=== PATIENT | female | born 1965 | race Caucasian/White ===

== ENCOUNTER 2016-05-09 01:07 | Emergency (ER) | payer SELFPAY ==
[~2016-05-09] VITALS: Ht 154.9 cm; Wt 99.5 kg
[2016-05-09 01:42] VITALS: Ht 154.9 cm; Wt 99.5 kg
[2016-05-10] MEDS ORDERED: FURO40TA4 PO (11:11)
[2016-05-10] MEDS ORDERED: AMIO200T2 PO (11:11)
[2016-05-10] MEDS ORDERED: VALS160T20 PO (11:12)
[2016-05-10] MEDS ORDERED: IPRA4AER INHALATION (11:12)
== END 2016-05-09 03:56 | disposition left against medical advice (07) ==
LOC: E/R 01:07
DX: Z53.21 Procedure and treatment not carried out due to patient leaving prior to being seen by health care provider (principal)

== ENCOUNTER 2016-05-10 09:30 | Emergency (ER) | payer MEDICAID ==
[~2016-05-10] VITALS: Wt 80.0 kg
[2016-05-10] MEDS ORDERED: SOD CHLORIDE 0.9% 500 ML IV STA (10:16)
[2016-05-10] MEDS ORDERED: METHYLPREDNISOLONE 125 MG INJ IV STA (10:16)
[2016-05-10] MEDS ORDERED: IPRATROPIUM (NEB) 0.5 MG/2.5 ML AMP INH STA (10:16)
[2016-05-10] MEDS ORDERED: ALBUTEROL 0.5% (NEB) 2.5 MG/0.5 ML AMP INH STA (10:16)
--- NOTE | 2016-05-10 10:21 | ERD ---
ER Documentation Chief Complaint Date/Time DATE: 05/10/16 TIME: 10:19 Chief Complaint COUGH AND WHEEZING FOR THE PAST 2 DAYS. MILD DISTRESS. SPEAKS FULL SENTENCE HPI This is a 51-year-old female that presents to the emergency department complaining of a productive cough, rhinorrhea and difficulty breathing for the past 48 hours. The patient smokes tobacco and indicates she has been smoking cigarettes since she was 16 years of age and smokes roughly 1 pack every 3 days. She indicates that the cough is greenish sputum. She denies any night sweats or weight loss. She has had no recent travel or prolonged immobilization and denies any shortness of breath at rest or exertion. She denies any chest pain or pressure that radiates to the neck arm back or jaw. The patient indicates she has a history of atrial fibrillation but underwent ablation 1 year ago. The patient does indicate that she is taking "heart medication" but cannot remember the name. She also states that she takes a water pill as she has a history of congestive heart failure. The patient states she has had no fevers or shaking or chills. She indicates she had a similar episode roughly one year ago and did require antibiotics as she was admitted to the hospital for pneumonia. ROS All systems reviewed and are negative except as per history of present illness. Medications Home Meds Reported Medications Albuterol/Ipratropium* (Combivent Respimat*) 20-100 Mcg/Inh - 4 Gm Aer.w.adap, 1 -2 PUFF INHALATION QID, #1 INHALER 05/10/16 Valsartan* (Diovan*) 160 Mg Tablet, 160 MG PO DAILY, TAB 05/10/16 Furosemide* (Furosemide*) 40 Mg Tablet, 40 MG PO DAILY, TAB 05/10/16 Amiodarone Hcl* (Amiodarone Hcl*) 200 Mg Tablet, 200 MG PO DAILY, #30 TAB 05/10/16 Allergies Allergies: Coded Allergies: No Known Allergy (Unverified , 05/10/16) Physical Exam Vitals Vital Signs Date Time Temp Pulse Resp B/P Pulse Ox O2 Delivery O2 Flow Rate FiO2 05/10/16 12:25 146 18 144/121 100 Nasal Cannula 2.0 05/10/16 11:23 100 05/10/16 11:23 153 22 100 Nasal Cannula 2.0 05/10/16 10:57 Nasal Cannula 2 05/10/16 09:36 98.8 84 24 194/125 98 Physical Exam Constitutional:Well-developed. Well-nourished. HEENT:Normocephalic. Atraumatic.Pupils were equal round reactive to light. Moist mucous membranes.No tonsillar exudates. Neck: No nuchal rigidity. No lymphadenopathy. No posterior cervical spine tenderness or step-offs. Respiratory: Patient was speaking in full complete sentences not using accessory muscles of respiration. Wheezing on end auscultation bilaterally. Cardiovascular: Tachycardic with irregularly irregular rhythm and no murmurs. No rubs were appreciated.S1, S2 normal. Distal pulses are palpable 2+ bilaterally. GI: Abdomen was soft. Nontender. Non Distended. No pulsatile abdominal masses or bruits. No rebound. No guarding. Bowel sounds were present and normal. Muscle skeletal: Full range of motion of both the upper and lower extremities bilaterally.Normal muscle tone.No assymetrical calf tenderness or swelling. Skin: No petechia, no purpura. No lesions on the palms or the soles of the feet. No maculopapular rash. NEURO: Patient was alert, awake, orientated x3.No facial droop. Gait observed and normal with no ataxia.Speech had regular rate and rhythm. No focal neurological deficits. Result Diagram: 05/10/16 1051 Results 24 hrs Laboratory Tests Test 05/10/16 10:51 Basophils # 0.010^3/ul Basophils % 0.3% Blood Morphology Comment Eosinophils # 0.210^3/ul Eosinophils % 1.5% Hematocrit 38.7% Hemoglobin 13.1g/dl Lymphocytes # 2.710^3/ul Lymphocytes % 26.5% Mean Corpuscular Hemoglobin 28.2pg Mean Corpuscular Hemoglobin Concent 33.9g/dl Mean Corpuscular Volume 83.3fl Mean Platelet Volume 9.8fl Monocytes # 1.010^3/ul Monocytes % 9.6% Neutrophils # 6.410^3/ul Neutrophils % 62.1% Nucleated Red Blood Cells # 0.010^3/ul Nucleated Red Blood Cells % 0.0/100WBC Platelet Count 04734^3/UL Red Blood Count 4.6410^6/ul Red Cell Distribution Width 13.3% White Blood Count 10.410^3/ul Current Medications Medications (Trade) Dose Ordered Sig/Jemmia Route PRN Reason Start Time Stop Time Status Last Admin Dose Admin Sodium Chloride (NS) 500 ml @ 500 mls/hr Q1H STAT IV 05/10/16 10:16 05/10/16 11:15 DC 05/10/16 11:00 Albuterol (Proventil 0.5% (Neb)) 10 mg ONCE STAT INH 05/10/16 10:16 05/10/16 10:20 DC 05/10/16 11:23 Ipratropium [place] (Atrovent 0.02% (Neb)) 1 mg ONCE STAT INH 05/10/16 10:16 05/10/16 10:20 DC 05/10/16 11:22 Methylprednisolone Sodium Succinate (Solu-Medrol) 125 mg ONCE STAT IV 05/10/16 10:16 05/10/16 10:20 DC 05/10/16 11:00 Benzonatate (Tessalon) 100 mg ONCE ONCE PO 05/10/16 10:30 05/10/16 10:39 DC 05/10/16 10:30 Diltiazem HCl 20 mg 20 mg ONCE ONCE IV 05/10/16 11:00 05/10/16 11:01 DC 05/10/16 10:59 Diltiazem HCl (Cardizem-D5W 125 Mg/125 ml Drip) 125 ml @ 5 mls/hr ONCE STAT IV 05/10/16 10:35 05/11/16 11:34 05/10/16 11:00 Metoprolol Tartrate (Lopressor) 5 mg ONCE ONCE IV 05/10/16 11:30 05/10/16 11:31 DC 05/10/16 11:53 Oseltamivir Phosphate (Tamiflu) 75 mg ONCE ONCE PO 05/10/16 12:00 05/10/16 12:01 DC 05/10/16 11:53 Furosemide (Lasix) 40 mg ONCE ONCE IV 05/10/16 12:30 05/10/16 12:31 UNV Nitroglycerin (Nitroglycerin 2% Oint) 1 inch ONCE ONCE TD 05/10/16 12:30 05/10/16 12:31 UNV Procedures/MDM The patient presented to the emergency department with dyspnea. My differential diagnosis included but was not limited to upper airway obstruction, CHF, pulmonary embolism, cardiac ischemia, pneumonia, pneumothorax, anemia, drug overdose, pulmonary edema, COPD or asthma. The patient had IV access established by nursing staff received 125 mg of Solu- Medrol IV as well as continues nebulizer treatments of albuterol and Atrovent. The patient was placed on a inspector general and showed irregular regular rhythm. The patient was given Cardizem for her atrial fibrillation with RVR and placed on a Cardizem drip. 12 Lead EKG tracing ordered and reviewed by myself showed: Irregular regular rhythm at 179 bpm bpm and no arrhythmia. [place] interval not appreciated as P waves were not present due to A. fib with RVR QRS duration normal. No ST segment elevation No ST segment depression. No changes consistent with acute ischemia. I obtained a 1 view chest radiograph which showed no evidence of infiltrates pneumothorax or pleural effusion but there was pulmonary vascular congestion suggestive of congestive heart failure. Patient and given IV Lasix and nitroglycerin The patient was also influenza positive. She received Tamiflu. The patient will be admitted in serious condition for the hospitalist Dr. Bautista. The patient will go to the telemetry service with an anticipated stay of greater than 2 midnights. Critical Care: Time: 40 minutes Treatments/Evaluations: Close monitoring and treatment of unstable vital signs, cardiorespiratory, and neurologic status, while maintaining tight balance of fluid, respiratory, and cardiac interventions. Time does not include performing any of the above billable procedures. Departure Diagnosis: Primary Impression: Atrial fibrillation with RVR Additional Impression: Influenza Condition: Serious CHINACRISTIANA BALLESTEROS May 10, 2016 10:21
[2016-05-10] MEDS ORDERED: BENZONATATE 100 MG CAP PO ONE (10:30)
[2016-05-10] MEDS ORDERED: DILTIAZEM-D5W 125MG/125ML DRIP 125 ML IV STA (10:35)
[2016-05-10] MEDS ORDERED: DILTIAZEM 25 MG INJ IV ONE (11:00)
[2016-05-10] MEDS ORDERED: AMIO200T2 PO (11:11)
[2016-05-10] MEDS ORDERED: FURO40TA4 PO (11:11)
[2016-05-10] MEDS ORDERED: IPRA4AER INHALATION (11:12)
[2016-05-10] MEDS ORDERED: VALS160T20 PO (11:12)
[2016-05-10 11:15] LABS: BASOPHILS % 0.3 % (0.0-2.0); EOSINOPHILS # 0.2 10^3/ul (0.0-0.5); EOSINOPHILS % 1.5 % (0.0-7.0); HEMATOCRIT 38.7 % (37.0-47.0); HEMOGLOBIN 13.1 g/dl (12.0-16.0); LYMPHOCYTES # 2.7 10^3/ul (0.8-2.9); LYMPHOCYTES % 26.5 % (15.0-51.0); MEAN CORPUSCULAR HEMOGLOBIN 28.2 pg (29.0-33.0); MEAN CORPUSCULAR HGB CONC 33.9 g/dl (32.0-37.0); MEAN CORPUSCULAR VOLUME 83.3 fl (82.0-101.0); MEAN PLATELET VOLUME 9.8 fl (7.4-10.4); MONOCYTES % 9.6 % (0.0-11.0); NEUTROPHIL # 6.4 10^3/ul (1.6-7.5); NEUTROPHILS % 62.1 % (39.0-77.0); PLATELET COUNT 279 10^3/UL (140-440); RED BLOOD COUNT 4.64 10^6/ul (4.20-5.40); RED CELL DISTRIBUTION WIDTH 13.3 % (11.5-14.5); UNCORRECTED WBC 10.4 10^3/ul (4.8-10.8); WHITE BLOOD COUNT 10.4 10^3/ul (4.8-10.8)
[2016-05-10] MEDS ORDERED: METOPROLOL 5 MG INJ IV ONE ×2 (11:30→13:00)
[2016-05-10 11:32] LABS: CONDITION 1
--- NOTE | 2016-05-10 11:36 | RADRPT ---
PROCEDURE: CHEST 1VW CLINICAL INDICATION: Shortness of breath TECHNIQUE: Single frontal view of the chest was obtained COMPARISON: None. FINDINGS: The cardiac size is moderately enlarged. Aortic vascular calcifications are demonstrated. There is mild to moderate pulmonary vascular congestion. The lungs are otherwise clear. No consolidation, effusion, or pneumothorax. Mild degenerative changes of the visualized osseous structures are visualized. IMPRESSION: 1. Moderate cardiomegaly with mild to moderate pulmonary vascular congestion and interstitial edema. 2. Atherosclerosis. RPTAT:PP .Earl Bowen MD, MD Date Time Electronically viewed and signed by .Earl Bowen MD, MD on 05/10/2016 11:35 .V/
[2016-05-10] MEDS ORDERED: OSELTAMIVIR 75 MG CAP PO ONE (12:00)
[2016-05-10] MEDS ORDERED: FUROSEMIDE 40 MG INJ IV ONE (12:30)
[2016-05-10] MEDS ORDERED: NITROGLYCERIN 2% 1 GM OINT PKT TD ONE (12:30)
[2016-05-10 12:32] LABS: ALBUMIN 3.7 g/dl (3.3-4.9); POTASSIUM 3.5 mmol/L (3.5-5.1)
[2016-05-10 12:34] LABS: INR 1.06; PROTIME 13.8 Sec (12.2-14.2); PT RATIO 1.1
[2016-05-10 12:35] LABS: ALBUMIN/GLOBULIN RATIO 1.15; BILIRUBIN,INDIRECT 0.6 mg/dl (0-1.1); BILIRUBIN,TOTAL 0.6 mg/dl (0.2-1.3); CREATININE 0.76 mg/dl (0.44-1.00); PARTIAL THROMBOPLASTIN TIME 30.9 Sec (25.0-35.0); TOTAL PROTEIN 6.9 g/dl (6.1-8.1)
[2016-05-10 12:47] LABS: TROPONIN-I 0.014 ng/ml (0.00-0.12)
[2016-05-10] MEDS ORDERED: ONDANSETRON 4 MG INJ IV PRN (13:00)
[2016-05-10] MEDS ORDERED: LORAZEPAM 2 MG INJ IV ONE (13:00)
[2016-05-10] MEDS ORDERED: ACETAMINOPHEN 325 MG TAB PO PRN ×2 (13:00→16:30)
[2016-05-10] MEDS ORDERED: AMIODARONE 200 MG TAB PO SCH (16:30)
[2016-05-10] MEDS ORDERED: ONDANSETRON 4 MG TAB PO PRN (16:30)
[2016-05-10] MEDS ORDERED: LORAZEPAM 2 MG INJ IV PRN (16:30)
[2016-05-10] MEDS ORDERED: NACL 0.9% 3 ML SYG IV SCH (16:30)
[2016-05-10] MEDS ORDERED: DOCUSATE SODIUM 100 MG CAP PO PRN (16:30)
[2016-05-10] MEDS ORDERED: BISACODYL (EC) 5 MG TAB PO PRN (16:30)
[2016-05-10] MEDS ORDERED: NITROGLYCERIN (SL) 0.4 MG TAB SL PRN (16:30)
[2016-05-10] MEDS ORDERED: morphine 2 MG INJ IV PRN (16:30)
[2016-05-10] MEDS ORDERED: LEVALBUTEROL (HFA) 15 GM INHALER INH PRN (16:30)
[2016-05-10] MEDS ORDERED: DILTIAZEM-D5W 125MG/125ML DRIP 125 ML IV SCH (17:30)
[2016-05-10] MEDS ORDERED: POTASSIUM CHLORIDE (SR) 20 MEQ TAB PO STA (17:49)
[2016-05-10] MEDS ORDERED: DIGOXIN 500 MCG INJ IV ONE ×2 (18:00→21:00)
[2016-05-10] MEDS ORDERED: GUAIFENESIN/CODEINE 5ML CUP PO PRN (18:00)
[2016-05-10] MEDS ORDERED: CEFTRIAXONE 1 GM/50 ML (PMX) 50 ML IVPB SCH (18:00)
--- NOTE | 2016-05-10 18:34 | HP ---
DATE OF ADMISSION: 05/10/2016 PLATINUM SMITH: Dr. eHri Calloway. CHIEF COMPLAINT: Cough, congestion, and palpitation. HISTORY OF PRESENT ILLNESS: This is a 51-year-old female with past medical history of nicotine depe ndency, atrial fibrillation status post cardioversion and ablation x2, asthma who has been complaini ng of having cough, congestion, shortness of breath for the past 2 weeks. She was seen and evaluate d at the urgent care and was placed on Combivent and azithromycin about 2 weeks ago, which she state s that her cough and congestion improved while she was on medication, although status post the pack finished, the patient's symptoms return. She has been complaining of having palpitation and shortne ss of breath. Today, the patient presents to [facility] Emergency Room where she was found to have atrial fibrillation with ventricular rate of 150s. Chest x-ray demonstrated moderate cardi omegaly with mild to moderate pulmonary vascular congestion, interstitial edema, atherosclerosis. A lso, the patient was found to have influenza A negative, influenza B positive. She was treated with Ativan, nitroglycerin, Lasix, Zofran, metoprolol, Tamiflu, Cardizem drip, Solu-Medrol, Atrovent, Te ssalon Perles, and 500 mL of normal saline. The patient, at this time, denies having any chest pain , shortness of breath. Continues to complain of having cough and congestion. No headache, dizzines s, lightheadedness. No change in visual acuity, diplopia, photophobia. No abdominal pain, no nause a, vomiting, diarrhea. No dysuria, hematuria, urgency, incontinence. No recent travel history. No sick contact. According to the patient, the patient was diagnosed with atrial fibrillation and was placed on Xarelto also, although patient after watching the commercial on TV stopped her Xarelto on her own and has not been on any anticoagulation medication. As stated above, patient has had 2 car diac ablations for her history of atrial fibrillation, although the atrial fibrillation has spontane ously recurred about a month later. At this time, patient denies any other discomfort. PAST MEDICAL AND SURGICAL HISTORY: As above per HPI. MEDICATIONS: 1. Combivent. 2. Amiodarone. 3. Lasix. 4. Diovan. 5. Aldactone. ALLERGIES: NO KNOWN DRUG ALLERGIES. FAMILY HISTORY: Positive for diabetes mellitus. Mother of [place] at the age of 65. SOCIAL HISTORY: Positive for smoking cigarettes, about 8 to 10 cigarettes per day. No alcohol, no illicit drugs. REVIEW OF SYSTEMS: As above per HPI, otherwise 12 review of systems has been found to be negative. PHYSICAL EXAMINATION: VITAL SIGNS: Temperature 98.8, pulse 129, respiration 18, blood pressure 142/84, oxygen 99% on room air. GENERAL APPEARANCE: The patient is lying in bed comfortably without any distress. She is awake, al ert, oriented. She is able to answer my questions properly. EYES AND ENT: Conjunctivae and lids are normal. Pupils are normal. Extraocular normal. Hearing g rossly normal. Lips, teeth, gums are normal. Oral mucosa is mildly dry. NECK: Supple. Trachea is midline. No lymphadenopathy. RESPIRATORY: Effort is normal. Clear to auscultation bilaterally. PSYCHIATRIC: Normal S1, S2. Atrial fibrillation. Irregular rate and rhythm. GASTROINTESTINAL: Abdomen is soft, nontender, not distended. Bowel sounds present. No guarding, n o rebound. GENITOURINARY: Deferred. MUSCULOSKELETAL: Upper and lower extremities within normal limits. Full range of motion. Strength 5/5 in both upper and lower extremities. NEUROLOGIC: Cranial nerves II through XII are grossly intact. PSYCHIATRIC: Normal judgment and insight. Alert and oriented x3. Mood and affect is normal. LABORATORY WORK AND IMAGING: WBC 10.4, hemoglobin 13.1, hematocrit 38.7, platelet 279. Sodium 145, potassium 3.5, chloride 102, bicarbonate 29, BUN 16, creatinine 0.76, glucose 116. BNP 6160. The rest of LFTs are within normal limits. Troponin negative. EKG showed irregular rhythm at 179 beats per minute. No arrhythmia. The patient has a P-wave due to atrial fibrillation and RVR. QRS dura tion normal, no ST segment elevation or depression, no sign of ischemia. ASSESSMENT AND PLAN: 1. Atrial fibrillation with rapid ventricular response. The patient has been placed on Cardizem dr ip. We will place the patient on Lovenox. We will follow up cardiology recommendation. We will ob tain 2D echocardiogram. Follow up cardiology recommendation for restarting the patient on anticoagu lation. The patient also has been started on metoprolol. 2. Influenza B positive. The patient has been started on Tamiflu. 3. Congestive heart failure. Continue Diovan, Lasix, and Aldactone. Obtain 2D echocardiogram. 4. Nicotine dependency. Education was provided. Smoking cessation has been recommended. 5. Noncompliance with medical treatment. The patient has been educated regarding the importance of anticoagulant medication. 6. For deep venous thrombosis prophylaxis, on Lovenox. 7. For gastrointestinal prophylaxis, on proton pump inhibitor. We will continue to monitor patient closely. Further recommendations, management, and treatment as per clinical course. Total amount of time was spent for evaluation of patient and admission workup 40 minutes. Dictated By: JESSY MEEKS MD PN/NTS Conf#: [id number] DID#: [id number]
--- NOTE | 2016-05-10 18:37 | CONS ---
DATE OF ADMISSION: 05/10/2016 DATE OF CONSULTATION: 05/10/2016 TYPE OF CONSULTATION: Cardiology. REFERRING PHYSICIAN: Dr. Meeks REASON FOR CONSULTATION: Atrial fibrillation, congestive heart failure. CHIEF COMPLAINT: Shortness of breath, palpitations, rapid heart rate. HISTORY OF PRESENT ILLNESS: Thank you for this referral. History obtained from the patient who is a poor historian, discussion with her girlfriend, discussion with Dr. Meeks and discussion with ER physician and staff. This is a 51-year-old female with history of cardiac disorder, probably atr ial fibrillation, chronic, and possibly cardiomyopathy but apparently does not follow up regularly. The patient came to emergency room because over the past ____ she has been having increasing shortn ess of breath, palpitations, rapid heart rate. She was noted to be atrial fibrillation, rapid ventr icular response, heart rate around 180s. Denies any chest pain or pressure to me. Also has had cou gh, wheezing as well. The patient said that she is compliant with her medication, but according to girlfriend who is at the bedside, states she is not taking her medications regularly because she is afraid of getting harmed by them. She apparently does not follow regularly with her physician george haley PAST MEDICAL HISTORY: History of cardiac disorder, atrial fibrillation, probably in congestive hear t failure although detail is not clear. MEDICATIONS AT HOME: She has only 2 medications at the bedside, Lasix and Aldactone, apparently aristides es them. On the list of home medication per medical reconciliation sheet, also valsartan and amioda amaury have been recorded, but I'm not sure if she is taking any of them or not. FAMILY HISTORY: The patient's mother with coronary artery disease. ALLERGIES: NO KNOWN DRUG ALLERGIES. SOCIAL HISTORY: The patient actively smokes. Occasionally drinks but denies heavy drug abuse. REVIEW OF SYSTEMS: As above mentioned. PHYSICAL EXAMINATION: VITAL SIGNS: Heart rate at admission was 180s, 150s. Currently 129. Temperature 98.8, blood press ure 142/85, respiratory rate of 18, saturating 99%. HEENT: Normocephalic, atraumatic. CARDIOVASCULAR: Irregularly irregular, tachycardic. PULMONARY: Diffuse wheezes. GASTROINTESTINAL: Soft, nontender. EXTREMITIES: Trivial edema. NEUROLOGIC: Awake and alert. PSYCHIATRIC: Appeared to be calm now. LABORATORY: Sodium 145, potassium 3.5, BUN of 16, creatinine 0.73, glucose of 116. ProBNP 6160. A lbumin 3.7. WBC of 10.4, ____ of 13.1, platelets of 271. Chest x-ray showed cardiomegaly, congestive heart failure upon personal review. EKG: Atrial fibrillation, rapid ventricular response. ASSESSMENT AND PLAN: 1. Congestive heart failure exacerbation, ____ acute on chronic secondary to systolic heart failure as well as diastolic dysfunction and noncompliance. 2. Atrial fibrillation, rapid ventricular response. 3. Probably chronic obstructive pulmonary disease. 4. History of poor compliance with medication. 5. Hypertension. RECOMMENDATIONS: Diovan will be continued. I will start the patient on IV Lasix for now. Echocard iogram has been ordered to be done. Will rule out myocardial infarction. Change the Lovenox to the rapeutic dose for now. Cardizem drip has been initiated. I will also give IV digoxin to control th e heart rate better. Continue to follow along with you. Dictated By: TUTU DE OLIVEIRA MD AV/GALLO Conf#: [id number] DID#: [id number] CC: JESSY MEEKS MD;*End*
[2016-05-10] MEDS ORDERED: FUROSEMIDE 20 MG INJ IV SCH (19:00)
[2016-05-10 19:20] VITALS: BP 115/62; PULSE 145; RESP 18
--- NOTE | 2016-05-10 19:37 | DS ---
Date/Time of Note Date/Time of Note DATE: 05/10/16 TIME: 19:30 Discharge Summary Admission/Discharge Info Admit Date/Time 05/10/16 Discharge Date/Time 05/10/16 Final Diagnosis Patient signed out AMA Admitting diagnoses: 1. Atrial fibrillation with rapid ventricular response. Status post Cardizem drip and Lovenox. Cardiology was consulted 2. Influenza B positive. Was started on Tamiflu. 3. Congestive heart failure. 4. Nicotine dependency. Education was provided. Smoking cessation has been recommended. 5. Noncompliance with medical treatment. The patient has been educated regarding the importance of anticoagulant medication. Hospital Course Hospital course Note patient: Patient signed out AMA from emergency room this is a 51-year-old female with past medical history of nicotine dependency, atrial fibrillation status post ablation x2, asthma who has been complaining of having cough, congestion, shortness of breath for the past 2 weeks. She was seen and evaluated at the urgent care and was placed on Combivent and azithromycin about 2 weeks ago, which she states that her cough and congestion improved while she was on medication, although status post the pack finished, the patient's symptoms return. She has been complaining of having palpitation and shortness of breath. Today, the patient presents to [facility] Emergency Room where she was found to have atrial fibrillation with ventricular rate of 150s. Chest x-ray demonstrated moderate cardiomegaly with mild to moderate pulmonary vascular congestion, interstitial edema, atherosclerosis. Also, the patient was found to have influenza A negative, influenza B positive. She was treated with Ativan, nitroglycerin, Lasix, Zofran, metoprolol, Tamiflu , Cardizem drip, Solu-Medrol, Atrovent, Tessalon Perles, and 500 mL of normal saline. According to the patient, the patient was diagnosed with atrial fibrillation and was placed on Xarelto also, although patient after watching the commercial on TV stopped her Xarelto on her own and has not been on any anticoagulation medication. As stated above, patient has had 2 cardiac ablations for her history of atrial fibrillation, although the atrial fibrillation has spontaneously recurred about a month later. Cardiology was consulted and echocardiogram was ordered. Patient was seen and evaluated by the serials librarian during the course of the emergency room although while in the ER patient decided to sign out AMA for personal reason. The discussion regarding her condition and diagnosis was discussed with the patient by the ER nurse and patient has requested a ride to pick her up from the emergency room. Patient understands that leaving the hospital/ER AGAINST MEDICAL ADVICE would place her in the risk of worsening of her cough, cardiac event, shortness of breath, myocardial infarction, CVA and possible Home Meds Reported Medications Albuterol/Ipratropium* (Combivent Respimat*) 20-100 Mcg/Inh - 4 Gm Aer.w.adap, 1 -2 PUFF INHALATION QID, #1 INHALER 05/10/16 Valsartan* (Diovan*) 160 Mg Tablet, 160 MG PO DAILY, TAB 05/10/16 Furosemide* (Furosemide*) 40 Mg Tablet, 40 MG PO DAILY, TAB 05/10/16 Amiodarone Hcl* (Amiodarone Hcl*) 200 Mg Tablet, 200 MG PO DAILY, #30 TAB 05/10/16 Pending Labs Laboratory Tests Test 05/10/16 10:51 05/10/16 12:00 05/10/16 18:15 Basophils # 0.010^3/ul (0.0-0.1) Basophils % 0.3% (0.0-2.0) Blood Morphology Comment Eosinophils # 0.210^3/ul (0.0-0.5) Eosinophils % 1.5% (0.0-7.0) Hematocrit 38.7% (37.0-47.0) Hemoglobin 13.1g/dl (12.0-16.0) Lymphocytes # 2.710^3/ul (0.8-2.9) Lymphocytes % 26.5% (15.0-51.0) Mean Corpuscular Hemoglobin 28.2pg (29.0-33.0) Mean Corpuscular Hemoglobin Concent 33.9g/dl (32.0-37.0) Mean Corpuscular Volume 83.3fl (82.0-101.0) Mean Platelet Volume 9.8fl (7.4-10.4) Monocytes # 1.010^3/ul (0.3-0.9) Monocytes % 9.6% (0.0-11.0) Neutrophils # 6.410^3/ul (1.6-7.5) Neutrophils % 62.1% (39.0-77.0) Nucleated Red Blood Cells # 0.010^3/ul (0.0-0.0) Nucleated Red Blood Cells % 0.0/100WBC (0.0-0.0) Platelet Count 34260^3/UL (140-440) Red Blood Count 4.6410^6/ul (4.20-5.40) Red Cell Distribution Width 13.3% (11.5-14.5) White Blood Count 10.410^3/ul (4.8-10.8) Activated Partial Thromboplast Time 30.9Sec (25.0-35.0) Alanine Aminotransferase (ALT/SGPT) 41IU/L (13-69) Albumin 3.7g/dl (3.3-4.9) Albumin/Globulin Ratio 1.15 Alkaline Phosphatase 107IU/L (42-121) Anion Gap 18 (8-16) Aspartate Amino Transf (AST/SGOT) 24IU/L (15-46) B-Type Natriuretic Peptide 6160PG/ML (0-125) Blood Urea Nitrogen 16mg/dl (7-20) Calcium Level 9.0mg/dl (8.4-10.2) Carbon Dioxide Level 29mmol/L (21-31) Chloride Level 102mmol/L (97-110) Creatinine 0.76mg/dl (0.44-1.00) Direct Bilirubin 0.00mg/dl (0.00-0.20) Globulin 3.20g/dl (1.3-3.2) Glucose Level 116mg/dl (70-220) INR International Normalized Ratio 1.06 Indirect Bilirubin 0.6mg/dl (0-1.1) Potassium Level 3.5mmol/L (3.5-5.1) Prothrombin Time 13.8Sec (12.2-14.2) Prothrombin Time Ratio 1.1 Sodium Level 145mmol/L (135-144) Total Bilirubin 0.6mg/dl (0.2-1.3) Total Protein 6.9g/dl (6.1-8.1) Troponin I 0.014ng/ml (0.00-0.12) Urine Test NEGATIVE (NEGATIVE) Microbiology Date/Time Source Procedure Growth Status 05/10/16 10:51 Nasopharyngeal Influenza Types A,B Direct EIA - Final Complete NAGHDECHI,JESSY MD May 10, 2016 19:37
[2016-05-10] MEDS ORDERED: OSELTAMIVIR 75 MG CAP PO SCH (21:00)
[2016-05-10] MEDS ORDERED: METOPROLOL 25 MG TAB PO SCH (21:00)
[2016-05-11] MEDS ORDERED: VALSARTAN 160 MG TAB PO SCH (09:00)
[2016-05-11] MEDS ORDERED: ASPIRIN 81 MG TAB PO SCH (09:00)
[2016-05-11] MEDS ORDERED: FUROSEMIDE 40 MG TAB PO SCH (09:00)
[2016-05-11] MEDS ORDERED: ENOXAPARIN 40 MG/0.4 ML SYG SC SCH (09:00)
[2016-05-11] MEDS ORDERED: FUROSEMIDE 40 MG INJ IV SCH (09:00)
[2016-05-11] MEDS ORDERED: SPIRONOLACTONE 25 MG TAB PO SCH (09:00)
== END 2016-05-10 19:20 | disposition left against medical advice (07) ==
LOC: E/R 09:30
DX: I48.91 Unspecified atrial fibrillation (principal); J10.1 Influenza due to other identified influenza virus with other respiratory manifestations; F17.210 Nicotine dependence, cigarettes, uncomplicated; I10 Essential (primary) hypertension
CPT/HCPCS: 36415; 71010; 80053; 83880; 84484; 84703; 85025; 85610; 85730; 87400; 93005; 94644; 96365; 96366; 96375; J1160; J1940; J2060; J2930; J7040; Z7502; Z7610; J0696

== ENCOUNTER 2016-07-08 05:21 | Inpatient (IN) | payer MEDICAID ==
[~2016-07-08] VITALS: Ht 157.5 cm; Wt 90.5 kg
[~2016-07-08 05:21] MED LIST: AMIO200T2 PO; FURO40TA4 PO; IPRA4AER INHALATION; VALS160T20 PO
[2016-07-08] MEDS ORDERED: SOD CHLORIDE 0.9% 1,000 ML IV STA (05:42)
[2016-07-08] MEDS ORDERED: DILTIAZEM 25 MG INJ IV ONE (06:00)
[2016-07-08 06:03] LABS: ADD SCAN DIFF NO
[2016-07-08] MEDS ORDERED: DILTIAZEM-D5W 125MG/125ML DRIP 125 ML IV STA (06:15)
[2016-07-08] MEDS ORDERED: ONDANSETRON 4 MG INJ IV STA (06:15)
[2016-07-08] MEDS ORDERED: DILTIAZEM 25 MG INJ IV STA (06:15)
[2016-07-08 06:18] LABS: INR 1.13; PROTIME 14.5 Sec (12.2-14.2); PT RATIO 1.1
[2016-07-08] MEDS ORDERED: IOHEXOL 300MG/ML 150 ML BTL ONE (06:18)
[2016-07-08] MEDS ORDERED: SOD CHLORIDE 0.9% 100 ML ONE (06:18)
[2016-07-08 06:19] LABS: PARTIAL THROMBOPLASTIN TIME 28.9 Sec (25.0-35.0)
[2016-07-08 06:20] LABS: BASOPHIL # 0.1 10^3/ul (0.0-0.1); BASOPHILS % 0.8 % (0.0-2.0); EOSINOPHILS # 0.1 10^3/ul (0.0-0.5); EOSINOPHILS % 1.1 % (0.0-7.0); HEMATOCRIT 46.5 % (37.0-47.0); HEMOGLOBIN 14.5 g/dl (12.0-16.0); LYMPHOCYTES # 2.8 10^3/ul (0.8-2.9); LYMPHOCYTES % 28.1 % (15.0-51.0); MEAN CORPUSCULAR HEMOGLOBIN 26.8 pg (29.0-33.0); MEAN CORPUSCULAR HGB CONC 31.2 g/dl (32.0-37.0); MEAN PLATELET VOLUME 10.4 fl (7.4-10.4); MONOCYTE # 0.8 10^3/ul (0.3-0.9); MONOCYTES % 7.8 % (0.0-11.0); NEUTROPHIL # 6.2 10^3/ul (1.6-7.5); NEUTROPHILS % 61.9 % (39.0-77.0); PLATELET COUNT 356 10^3/UL (140-415); RED BLOOD COUNT 5.41 10^6/ul (4.20-5.40); RED CELL DISTRIBUTION WIDTH 13.9 % (11.5-14.5); WHITE BLOOD COUNT 10.1 10^3/ul (4.8-10.8)
[2016-07-08 06:21] LABS: ANION GAP 13 (8-16); BLOOD UREA NITROGEN 20 mg/dl (7-20); CALCIUM 9.2 mg/dl (8.4-10.2); CARBON DIOXIDE 29 mmol/L (21-31); CHLORIDE 103 mmol/L (97-110); CREATININE 1.02 mg/dl (0.44-1.00); GLUCOSE 108 mg/dl (70-220); MAGNESIUM 1.8 mg/dl (1.7-2.5); POTASSIUM 3.6 mmol/L (3.5-5.1); SODIUM 141 mmol/L (135-144)
[2016-07-08 06:33] LABS: B-TYPE NATRIURETIC PEPTIDE 6890 PG/ML (0-125)
[2016-07-08 06:35] LABS: TROPONIN-I < 0.012 ng/ml (0.00-0.12)
--- NOTE | 2016-07-08 06:43 | RADRPT ---
PROCEDURE: CHEST - 1 VIEW CLINICAL INDICATION: 51-year-old female with chest pain. TECHNIQUE: A single frontal AP upright portable view of the chest was performed. The images were reviewed on a PACS workstation. COMPARISON: Chest x-ray May 10, 2016. FINDINGS: The cardiomediastinal silhouette is moderately enlarged but without significant interval change. Th e thoracic aortic arch is calcified. There is nbin-[id number] pulmonary vascular congestion. Ther e is no evidence for focal consolidation. There is no evidence for pneumothorax. The osseous structu res are intact. IMPRESSION: 1. Cardiomegaly. 2. Calcified thoracic aortic arch. 3. Pulmonary vascular congestion. .Alfa Reaves MD, Date Time Electronically viewed and signed by .Alfa Reaves MD, on 07/08/2016 06:43 .M/
--- NOTE | 2016-07-08 07:42 | RADRPT ---
PROCEDURE: CT angiogram of the chest with contrast. CLINICAL INDICATION: Shortness of breath. Rule out pulmonary embolism. TECHNIQUE: CT scan of the chest with contrast was performed on a multidetector high-resolution CT scan. The patient was scanned following the uncomplicated intravenous administration of 100 ml Omni paque-300. Coronal and sagittal reformatted images were obtained from the axial source images. Stand jarett CT angiogram of the chest with contrast protocols were performed. The total exam CTDI equals 49.29 mGy and the total exam DLP equals 848.70 mGy-cm. One or more of the following dose reduction techniques were used: - Automated exposure control. - Adjustment of the mA and/or kV according to patient size. Use of iterative reconstruction technique. COMPARISON: Chest 07/08/2016 FINDINGS: The pulmonary outflow tract, right and left main pulmonary arteries, right and left interlobar are a nd primary intersegmental pulmonary arteries are well enhanced without filling defects. Specificall y there is no evidence of central pulmonary emboli. There is atherosclerotic vascular disease of th e aorta there is fusiform aneurysmal dilatation of the ascending aorta with a maximal diameter of ap proximately 4.4 cm. No evidence of aortic dissection though the aorta is not optimally opacified. No evidence of periaortic fluid collections. There are numerous right upper and lower lobe noncalcified pulmonary nodules some of which are pleur al-based measuring between 3 mm and 9 mm consistent with inflammatory versus neoplastic etiologies. There is no evidence of left lung pulmonary nodules. There is mild bilateral chronic interstitial lung disease worse at the lung bases. The addition there is singh lobular emphysema. Mild dependent atelectasis. There is lateral eventration of the left hemidiaphragm. There is no evidence of pleural effusions o r pneumothorax. The heart is mildly enlarged without evidence of pericardial effusion. There is mi ld to moderate paratracheal , right hilar and prevascular space lymphadenopathy. No evidence of left hilar or axillary lymphadenopathy. In the posterior subcapsular mid right lobe of the liver is a 4.5 x 2.5 cm low density lesion. In t he lateral mid right lobe of the liver is a ill-defined 1.2 cm low density lesion. Uncertain as dav ology of the low density lesions however hepatic metastasis should be excluded. In addition, the ad renal glands demonstrate nodular masses larger on the left measuring approximately 3.5 cm. Again, m etastasis should be considered. An MRI of the abdomen with without contrast is suggested for furthe r evaluation if clinically indicated. There is a pedunculated 2 cm low density mass involving the p osterior superior left kidney with Hounsfield units not consistent with a simple cyst. Follow-up is suggested as well. Remainder of the images of the upper abdomen are unremarkable. There is degenerative changes of the lower cervical and thoracic spine. There are no acute osseous findings. There are no osteoblastic/osteolytic lesions. IMPRESSION: 1. No evidence of central pulmonary emboli. 2. Aneurysmal dilatation of the ascending aorta with a maximal diameter of 4.4 cm. No evidence of aortic dissection. 3. Multiple noncalcified right upper and lower lobe pulmonary nodules measuring between 3 and 9 mm. Rule out metastatic disease. 4. Mild to moderate paratracheal, right hilar and aortopulmonary window lymphadenopathy. 5. Low density lesions in the right lobe of the liver as described above. Bilateral adrenal gland n odular masses larger on the left. Pedunculated low-density mass involving the posterior superior le ft kidney not consistent with a simple cyst. Malignancy should be excluded and recommend follow-up M RI of the abdomen with and without contrast for further evaluation. 6. COPD and chronic interstitial lung disease as described above. 7. Cardiomegaly without pericardial effusion. RPTAT:AAJJ Physician George Date Time Electronically viewed and signed by Physician Georeg on 07/08/2016 07:41 BM/
[2016-07-08] MEDS ORDERED: ONDANSETRON 4 MG INJ IV PRN ×2 (08:30→10:30)
[2016-07-08] MEDS ORDERED: ACETAMINOPHEN 325 MG TAB PO PRN ×2 (08:30→10:30)
--- NOTE | 2016-07-08 09:12 | ERA ---
ER Documentation Chief Complaint Date/Time DATE: 07/08/16 TIME: 09:00 Chief Complaint SOB w/ palpitation x 2 days HPI 51-year-old female history of borderline hypertension, hyperthyroidism and atrial fibrillation status post ablation 2 years ago who presents with palpitations for approximately 2-3 days. The patient describes elevated heart rate during this timeframe. Patient denies any chest pain but does have some shortness of breath with occasional pleuritic symptoms. She denies any fevers or chills. No exertional chest pain. She states compliance with methimazole for hyperthyroidism. ROS All systems reviewed and are negative except as per history of present illness. Medications Home Meds Reported Medications Albuterol/Ipratropium* (Combivent Respimat*) 20-100 Mcg/Inh - 4 Gm Aer.w.adap, 1 -2 PUFF INHALATION QID, #1 INHALER 05/10/16 Valsartan* (Diovan*) 160 Mg Tablet, 160 MG PO DAILY, TAB 05/10/16 Furosemide* (Furosemide*) 40 Mg Tablet, 40 MG PO DAILY, TAB 05/10/16 Amiodarone Hcl* (Amiodarone Hcl*) 200 Mg Tablet, 200 MG PO DAILY, #30 TAB 05/10/16 Allergies Allergies: Coded Allergies: No Known Allergy (Unverified , 05/10/16) PMhx/Soc History of Surgery: Yes (C SECTION X3, LT FOOT, HYSTERECTOMY) Anesthesia Reaction: No Hx Neurological Disorder: No Hx Respiratory Disorders: No Hx Cardiac Disorders: Yes (HTN, AFIB) Hx Psychiatric Problems: No Hx Miscellaneous Medical Probl: Yes (HYPERTHYROIDISM ) Hx Alcohol Use: No Hx Substance Use: No Hx Tobacco Use: No Smoking Status: Never smoker FmHx Family History: No diabetes Physical Exam Vitals Vital Signs Date Time Temp Pulse Resp B/P Pulse Ox O2 Delivery O2 Flow Rate FiO2 07/08/16 08:17 112 18 178/135 97 Nasal Cannula 3.0 07/08/16 07:23 97.8 127 22 139/101 100 Nasal Cannula 2.0 07/08/16 06:30 145 24 145/131 100 Nasal Cannula 2.0 07/08/16 06:00 Nasal Cannula 2.0 07/08/16 06:00 152 28 140/125 100 Nasal Cannula 2.0 07/08/16 06:00 Nasal Cannula 2 4/20/17 05:25 96.8 158 20 167/125 98 Physical Exam General: Well developed, well nourished, no acute distress Head: Normocephalic, atraumatic. Eyes: Pupils equally reactive, EOM intact ENT: Moist mucous membranes Neck: Supple, no lymphadenopathy Respiratory: Lungs clear bilaterally, no distress Cardiovascular: Tachycardia, irregularly irregular, no murmurs, rubs, or gallops Abdominal: Soft, non-tender, non-distended, no peritoneal signs : Deferred MSK: No edema, no unilateral swelling, 5/5 strength Neurologic: Alert and oriented, moving all extremities, normal speech, no focal weakness, no cerebellar signs Skin: No rash Psych: Normal mood Result Diagram: 07/08/1654 07/08/16 0554 Results 24 hrs Laboratory Tests Test 07/08/16 05:54 White Blood Count 10.110^3/ul Red Blood Count 5.4110^6/ul Hemoglobin 14.5g/dl Hematocrit 46.5% Mean Corpuscular Volume 86.0fl Mean Corpuscular Hemoglobin 26.8pg Mean Corpuscular Hemoglobin Concent 31.2g/dl Red Cell Distribution Width 13.9% Platelet Count 53235^3/UL Mean Platelet Volume 10.4fl Neutrophils % 61.9% Lymphocytes % 28.1% Monocytes % 7.8% Eosinophils % 1.1% Basophils % 0.8% Nucleated Red Blood Cells % 0.0/100WBC Neutrophils # 6.210^3/ul Lymphocytes # 2.810^3/ul Monocytes # 0.810^3/ul Eosinophils # 0.110^3/ul Basophils # 0.110^3/ul Nucleated Red Blood Cells # 0.010^3/ul Prothrombin Time 14.5Sec Prothrombin Time Ratio 1.1 INR International Normalized Ratio 1.13 Activated Partial Thromboplast Time 28.9Sec Sodium Level 141mmol/L Potassium Level 3.6mmol/L Chloride Level 103mmol/L Carbon Dioxide Level 29mmol/L Anion Gap 13 Blood Urea Nitrogen 20mg/dl Creatinine 1.02mg/dl Glucose Level 108mg/dl Calcium Level 9.2mg/dl Magnesium Level 1.8mg/dl Troponin I < 0.012ng/ml B-Type Natriuretic Peptide 6890PG/ML Thyroid Stimulating Hormone (TSH) < 0.015MIU/L Free Thyroxine 2.49ng/dl Current Medications Medications (Trade) Dose Ordered Sig/Jemima Route PRN Reason Start Time Stop Time Status Last Admin Dose Admin Sodium Chloride (NS) 1,000 ml @ 1,000 mls/hr Q1H STAT IV 07/08/16 05:42 07/08/16 06:41 DC 07/08/16 05:54 Diltiazem HCl (Cardizem Iv) 10 mg ONCE ONCE IV 07/08/16 06:00 07/08/16 06:01 DC 07/08/16 05:54 Diltiazem HCl 20 mg 20 mg ONCE STAT IV 07/08/16 06:15 07/08/16 06:16 DC 07/08/16 06:19 Diltiazem HCl (Cardizem-D5W 125 Mg/125 ml Drip) 125 ml @ 5 mls/hr ONCE STAT IV 07/08/16 06:15 07/09/16 07:14 07/08/16 06:26 Ondansetron HCl 4 mg 4 mg ONCE STAT IV 07/08/16 06:15 07/08/16 06:16 DC 07/08/16 06:18 Sodium Chloride (NS) 100 ml @ ud STK-MED ONCE .ROUTE 07/08/16 06:18 07/08/16 06:19 DC 07/08/16 06:59 Iohexol (Omnipaque 300mg/ ml) 150 ml STK-MED ONCE .ROUTE 07/08/16 06:18 07/08/16 06:19 DC 07/08/16 06:59 Ondansetron HCl (Zofran Inj) 4 mg ER BRIDGE PRN IV NAUSEA AND/OR VOMITING 07/08/16 08:30 07/09/16 08:29 Acetaminophen (Tylenol Tab) 650 mg ER BRIDGE PRN PO MILD PAIN/FEVER 07/08/16 08:30 07/09/16 08:29 Procedures/MDM EKG, MONITORS, & DIAGNOSTIC IMAGING: EKG #1 EKG: I reviewed and interpreted a 12-lead EKG. Rhythm: A. fib with RVR Ectopy: None Intervals: No abnormalities ST segments: No elevations or depressions T waves: No contiguous inversions EKG #2 EKG: I reviewed and interpreted a 12-lead EKG. Rhythm: A. fib with RVR Ectopy: None Intervals: No abnormalities ST segments: No elevations or depressions T waves: No contiguous inversions Chest x-ray: I reviewed and interpreted a 1 view of the chest Mediastinum: No enlargement Cardiac silhouette: No cardiomegaly Airspace: Clear lung chanel bilaterally without evidence of pneumothorax Bones: No evidence of fracture CTPA: IMPRESSION: 1. No evidence of central pulmonary emboli. 2. Aneurysmal dilatation of the ascending aorta with a maximal diameter of 4.4 cm. No evidence of aortic dissection. 3. Multiple noncalcified right upper and lower lobe pulmonary nodules measuring between 3 and 9 mm. Rule out metastatic disease. 4. Mild to moderate paratracheal, right hilar and aortopulmonary window lymphadenopathy. 5. Low density lesions in the right lobe of the liver as described above. Bilateral adrenal gland nodular masses larger on the left. Pedunculated low- density mass involving the posterior superior left kidney not consistent with a simple cyst. Malignancy should be excluded and recommend follow-up MRI of the abdomen with and without contrast for further evaluation. 6. COPD and chronic interstitial lung disease as described above. 7. Cardiomegaly without pericardial effusion. RPTAT:AAJJ LAB INTERPRETATION: Negative troponin, elevated BNP, TSH is low with free T4 that is high consistent with hyperthyroidism. MEDICAL DECISION MAKING: The patient presents with atrial fibrillation with rapid ventricular response. She is not anticoagulated. The patient also is dealing with hyperthyroidism and taking methimazole. This is likely contributing to the patient's symptoms of A. fib with RVR. She does not exhibit clinical signs or symptoms concerning for thyrotoxicosis or thyroid storm. The patient does have borderline high blood pressure but is improved. Her rate is also improved with Cardizem. It does not appear the patient is taking a beta-junior. At this time given that the patient does not exhibit signs or symptoms concerning for thyroid storm or thyrotoxicosis I do not believe the patient requires PTU, steroids, beta blockers. Additionally, the patient was initiated on Cardizem. I am concerned that concomitant use of Cardizem with a beta- junior may lead to heart block. Given that the patient is rate controlled on Cardizem, no indication at this time to initiate beta-junior. The patient did describe some pleuritic component prompting CTPA ordered by overnight physician upon initial assessment. ER COURSE: The patient CTPA shows evidence of possible malignancy with nonspecific nodules in the liver and chest. The patient will fit from inpatient workup to further evaluate for malignancy. The patient was informed of these findings. The patient was given Cardizem bolus 2, Cardizem drip and is now rate controlled. No indication for anticoagulation at this point, risk stratification as an inpatient would be reasonable. I kept the patient and/or family informed of laboratory and diagnostic imaging results throughout the emergency room course. DISPOSITION PLAN: Telemetry admission for management of A. fib with RVR, rule out a potential malignancy. CONSULTATION: Accepting care team and consultations: I discussed the current laboratory data, diagnostic imaging and emergency care provided. Admitting team: Dr. Mullins Admitting team indication: Insurance directed Critical Care Note: Total time: 35 minutes Indication/Organ System Threat: Management of A. fib with RVR requiring multiple boluses and a drip of rate control medication I spent the above amount of critical care time with the patient, not including billable procedures. This included chart review, consultations, repeat bedside evaluations, and titration of appropriate medications to prevent cardiopulmonary or respiratory collapse. Departure Diagnosis: Primary Impression: Atrial fibrillation with rapid ventricular response Additional Impression: Hyperthyroidism Condition: Stable REX JOHNSON MD Jul 08, 2016 09:11
[2016-07-08] MEDS ORDERED: LORAZEPAM 2 MG INJ IV PRN (10:30)
[2016-07-08] MEDS ORDERED: MAGNESIUM HYDROXIDE 30ML CUP PO PRN (10:30)
[2016-07-08] MEDS ORDERED: LEVALBUTEROL (NEB) 0.63 MG/3 ML AMP HHN PRN (10:30)
[2016-07-08] MEDS ORDERED: BISACODYL (EC) 5 MG TAB PO PRN (10:30)
[2016-07-08] MEDS ORDERED: NACL 0.9% 3 ML SYG IV SCH (10:30)
[2016-07-08] MEDS ORDERED: hydrALAzine 20 MG INJ IV PRN (10:30)
[2016-07-08] MEDS ORDERED: HYDROCODONE/APAP (5/325) TAB PO PRN (10:30)
[2016-07-08] MEDS ORDERED: morphine 2 MG INJ IV PRN (10:30)
--- NOTE | 2016-07-08 11:22 | CONS ---
Date/Time of Note Date/Time of Note DATE: 07/08/16 TIME: 11:15 Assessment/Plan Assessment/Plan Additional Assessment/Plan Chest x-ray was reviewed from today which is showing cardio megaly changes of pulmonary edema. CT of the chest also was reviewed which is not showing any PE however subcentimeter peripheral pulmonary nodules are identified. There is nonspecific mediastinal adenopathy. Also visualized in hepatic lesion of uncertain significance at this point. Assessment recommendations; 1. Patient admitted for CHF exacerbation with atrial fibrillation and rapid ventricular response with a rate no control below 100 on Cardizem drip. 2. Abnormal CT chest showing nonspecific lung lesions , very difficult to appropriately characterize them in view of ongoing CHF pattern. 3. Liver lesion of uncertain etiology at this point. Start the patient on full dose Lovenox , she may be an excellent candidate for apixaban. Change Lasix to 40 mg IV daily. Discontinue oral Lasix. Patient will need to have a repeat CT of the chest done without contrast once her pulmonary edema is resolved. Meanwhile ultrasound of the liver is recommended with possibly an MRI as well for further characterization of the lesion. Consultation Date/Type/Reason Admit Date/Time Date of Consultation: Jul 08, 2016 Type of Consultation: Pulmonary Reason for Consultation Pulmonary consultations requested for evaluation of abnormal CT of the chest showing lung nodules. History presenting any; patient is a pleasant 51-year-old lady who came into the emergency room with a few days history of increasing shortness of breath with exertion. Patient denies having any coughing wheezing sputum production fever chills or chest pain. Also been complaining of occasional lower extremity edema. According to her she was recently discharged from the hospital about 4 days ago and was admitted for congestive heart failure. On further workup. The chest x-ray showing pulmonary edema as well as patient has atrial fibrillation with rapid ventricular response which is much better controlled after started on Cardizem drip. Patient also is reporting improvement in shortness of breath. Past medical history; 1. Patient with a history of congestive heart failure. 2. Hypertension. 3. History of atrial fibrillation status post ablation 2 years ago. Patient also was on oral anticoagulation but was discontinued for the last couple of months. 4. History of partial hysterectomy history of C-sections 3. 5. No known history of coronary artery disease or diabetes. Medications; were reviewed. Allergies; are none. Social history; patient is a very scant smoker. No history of alcohol or drug abuse. Family history; she is single she has 3 children. Various family members of hypertension in the family. 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 Review of systems; denies any headache, visual changes. Any seizures. Any hearing loss. Any sinus symptoms. Denies any sore throat, chest pain, angina, wheezing, sputum production. Denies any hemoptysis. Denies any abdominal pain , nausea vomiting. Denies any melena hematochezia. Denies any urinary symptoms. Has gained some weight. Complains of orthopnea. Complains of dyspnea on exertion. Complains of lower extremity edema up and on. Also complains of occasional palpitations and dizziness. General exam; young lady, awake alert currently in no distress. Social History Smoking Status: Never smoker Exam/Review of Systems Vital Signs Vitals Vital Signs Date Time Temp Pulse Resp B/P Pulse Ox O2 Delivery O2 Flow Rate FiO2 07/08/16 09:57 97.9 117 18 143/97 98 Nasal Cannula 3.0 Exam H exam; supple neck, positive JVD. No lymphadenopathy. Midline trachea. No thyromegaly. Pupils are midsize reactive to light. Extraocular movements are intact. Patient has fair dentition. No neck masses, no thyromegaly no neck bruits. Chest examination of Markie diminished but clear breath sounds bilaterally. S1 -S2 audible, no murmurs. Irregular rhythm. Abdomen examination; soft, protuberant. No organomegaly. Nontender. Bowel sounds audible. Extremity examination; no peripheral edema. Pulses 1+ bilaterally. No clubbing. CUTTER IN exam is; cranial nerves are grossly intact, no motor deficit. Results Result Diagram: 07/08/16 0554 07/08/16 0554 Results 24 hrs Laboratory Tests Test 07/08/16 05:54 White Blood Count 10.1 Red Blood Count 5.41 H Hemoglobin 14.5 Hematocrit 46.5 # Mean Corpuscular Volume 86.0 Mean Corpuscular Hemoglobin 26.8 L Mean Corpuscular Hemoglobin Concent 31.2 L Red Cell Distribution Width 13.9 Platelet Count 356 Mean Platelet Volume 10.4 Neutrophils % 61.9 Lymphocytes % 28.1 Monocytes % 7.8 Eosinophils % 1.1 Basophils % 0.8 Nucleated Red Blood Cells % 0.0 Neutrophils # 6.2 Lymphocytes # 2.8 Monocytes # 0.8 Eosinophils # 0.1 Basophils # 0.1 Nucleated Red Blood Cells # 0.0 Prothrombin Time 14.5 H Prothrombin Time Ratio 1.1 INR International Normalized Ratio 1.13 Activated Partial Thromboplast Time 28.9 Sodium Level 141 Potassium Level 3.6 Chloride Level 103 Carbon Dioxide Level 29 Anion Gap 13 Blood Urea Nitrogen 20 Creatinine 1.02 H Glucose Level 108 Calcium Level 9.2 Magnesium Level 1.8 Troponin I < 0.012 B-Type Natriuretic Peptide 6890 H Thyroid Stimulating Hormone (TSH) < 0.015 L Free Thyroxine 2.49 H Medications Medications Current Medications Hydralazine HCl (Apresoline) 10 mg Q6H PRN IV SBP>160; Start 07/08/16 at 10:30 Lorazepam (Ativan) 0.5 mg Q6H PRN IV ANXIETY; Start 07/08/16 at 10:30 Ondansetron HCl (Zofran Inj) 4 mg Q6H PRN IV NAUSEA AND/OR VOMITING; Start at 10:30 Acetaminophen (Tylenol Tab) 650 mg Q6H PRN PO PAIN LEVEL 1-3 OR FEVER; Start at 10:30 Acetaminophen/ Hydrocodone Bitart ([place] (5/325)) 1 tab Q6H PRN PO PAIN LEVEL 4 -6; Start 07/08/16 at 10:30 Morphine Sulfate (morphine) 2 mg Q4H PRN IV PAIN LEVEL 7-10; Start 07/08/16 at 10:30 Magnesium Hydroxide (Milk Of Mag) 30 ml DAILY PRN PO CONSTIPATION; Start at 10:30 Bisacodyl (Dulcolax) 5 mg DAILY PRN PO CONSTIPATION; Start 07/08/16 at 10:30 Famotidine (Pepcid) 20 mg Q12 PO ; Start 07/08/16 at 21:00 Enoxaparin Sodium (Lovenox) 40 mg DAILY SC ; Start 07/09/16 at 09:00 Amiodarone HCl (Cordarone) 200 mg DAILY PO ; Start 07/09/16 at 09:00 Furosemide (Lasix) 40 mg DAILY PO ; Start 07/09/16 at 09:00 Valsartan (Diovan) 160 mg DAILY PO ; Start 07/09/16 at 09:00 Polyethylene Glycol (Miralax) 17 gm BID PO ; Start 07/08/16 at 21:00 Docusate Sodium (Colace) 100 mg BID PO ; Start 07/08/16 at 21:00 JAYDEN MONROE Jul 08, 2016 11:22
[2016-07-08] MEDS ORDERED: FUROSEMIDE 40 MG INJ IV ONE (11:30)
[2016-07-08] MEDS: ENOXAPARIN 100 MG/ML SYG SC SCH ×2 (12:01→21:00)
[2016-07-08 12:23] LABS: ALBUMIN 3.2 g/dl (3.3-4.9)
[2016-07-08 12:26] LABS: BILIRUBIN,INDIRECT 0.6 mg/dl (0-1.1); BILIRUBIN,TOTAL 0.6 mg/dl (0.2-1.3); TOTAL PROTEIN 6.5 g/dl (6.1-8.1)
[2016-07-08 12:27] LABS: CREATINE KINASE 66 IU/L (23-200)
[2016-07-08 12:38] LABS: CK-MB 1.28 ng/ml (0.0-2.4)
[2016-07-08 12:44] LABS: TROPONIN-I < 0.012 ng/ml (0.00-0.12)
[2016-07-08] MEDS ORDERED: PROPYLTHIOURACIL 50 MG TAB PO ONE (13:30)
[2016-07-08] MEDS ORDERED: METHYLPREDNISOLONE 125 MG INJ IV ONE (14:00)
--- NOTE | 2016-07-08 14:00 | HP ---
DATE OF ADMISSION: 07/08/2016 TIME OF EVALUATION: 10:00 a.m. REASON FOR ADMISSION: Dyspnea and palpitations. CONSULTANTS: 1. Dr. Heri Calloway, Cardiology. 2. Dr. Anton Pascal, Pulmonology. 3. Dr. Onel Vallejo, Endocrinology. HISTORY OF PRESENT ILLNESS: This is a 51-year-old female patient with past medical history of atrial fibrillation, status post cardiac ablation approximately 2 years ago at [facility], essential hypertension and hyperthyroidism who came to the emergency room with chief complaint of dyspnea and palpitations that has been going on for 2 to 3 days. The patient verbalized the dyspnea as exertional and unable to even exert minimally. The patient denied any chest pain. The patient was complaining of mild palpitations. The patient denied any fevers or chills. The patient was complaining of abdominal pain and constipation. Denies any diarrhea. She denied any dysuria or hematuria. The patient denied any syncope or presyncope. 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 In the emergency room, the patient was noticed to be in atrial fibrillation with rapid ventricular response. The patient was started on a Cardizem drip with improvement in the patient's symptoms. PAST MEDICAL HISTORY: Essential hypertension, atrial fibrillation, hyperthyroidism, obesity. PAST SURGICAL HISTORY: Partial hysterectomy, . HOME MEDICATIONS: 1. Combivent 1 to 2 puffs inhaled q.i.d. p.r.n. dyspnea. 2. Amiodarone 200 mg p.o. daily. 3. Valsartan 160 mg p.o. daily. 4. Lasix 40 mg p.o. daily. ALLERGIES: NO KNOWN DRUG ALLERGIES. SOCIAL HISTORY: The patient lives at home with her family. Denies any use of alcohol. The patient continues to smoke 3 cigarettes per day. Denied any use of illicit drugs. REVIEW OF SYSTEMS: A 12-point review of systems was made and review of systems is negative other than what is mentioned in the history of present illness. PHYSICAL EXAMINATION: VITAL SIGNS: Temperature 97.9, pulse rate 117, respiratory rate 18, blood pressure 143/97, oxygen saturation 98% on 3 liters oxygen via nasal cannula. GENERAL: This is an obese female lying in bed in no apparent distress. HEENT: Head normocephalic and atraumatic. Eyes: Anicteric sclerae, conjunctivae clear. ENT: Nasal septum is midline. Oral mucosa is dry. NECK: Short and obese. Unable to visualize any neck veins. CARDIAC: Irregularly irregular rhythm. S1, S2 heard. ABDOMEN: Soft, nontender. Bowel sounds positive in all 4 quadrants. GENITOURINARY: Deferred. EXTREMITIES: No cyanosis, no clubbing, no edema. Peripheral pulses are palpable. NEUROLOGIC: The patient is awake, alert and oriented. There are no focal neurologic deficits. Cranial nerves are grossly intact. SKIN: Subcutaneous nodules in the right lower extremity on the lateral aspect and the right upper extremity on the posterior aspect. Nontender to palpation. LABORATORY AND DIAGNOSTIC DATA: WBC 10.1, hemoglobin 14.5, hematocrit 46.5, platelet count of 356. Sodium 141, potassium 3.6, chloride 106, carbon dioxide 29, BUN 20, creatinine 1.02, glucose 108, calcium 9.2, magnesium 1.8. Troponin I less than 0.012. BNP 6890. TSH 0.015, free T4 of 2.49. PT 14.5, INR 1.13, PTT 28.9. CT angiogram of the chest: No evidence of any central pulmonary emboli. Aneurysmal dilatation of the ascending aorta with a maximum diameter 4.4 cm. No evidence of aortic dissection. Multiple noncalcified right upper and lower lobe pulmonary nodules measuring between 3 and 9 mm. Low density lesions in the right lobe of the liver. Pedunculated low density mass involving the posterior aspect of the left kidney, not consistent with a simple cyst. Malignancy should be excluded. COPD and chronic interstitial lung disease. Cardiomegaly without pericardial effusion. 12-lead EKG: Atrial fibrillation with rapid ventricular response. Chest x-ray: Cardiomegaly. Calcified thoracic aortic arch. Pulmonary vascular congestion. IMPRESSION: This is a 51-year-old female patient with past medical history of atrial fibrillation who came to the emergency room with chief complaint of dyspnea and palpitations, was found to have atrial fibrillation with rapid ventricular response, who was treated with IV Cardizem with improvement of the patient's symptoms. Will be admitted here for further treatment and evaluation. ASSESSMENT AND PLAN: 1. Atrial fibrillation with rapid ventricular response. On Cardizem drip. Heart rate improved with Cardizem. A cardiology consult will be obtained. The patient will be ruled out for any underlying acute coronary syndrome. 2. Hyperthyroidism. The patient verbalized that she was taking methimazole at home. However, the patient verbalized that she has been noncompliant with it. The patient's thyroid panel showing evidence of hyperthyroidism. We will involve endocrinology on the case. 3. Multiple pulmonary nodules along with low density lesions in the right lower lobe of the liver. Suspected malignancy. Tumor markers will be ordered. Pulmonology consult will be obtained on this patient. 4. Chronic obstructive pulmonary disease. The patient will be maintained on inhaled bronchodilators. However, the patient will be started on Xopenex instead of albuterol because of underlying atrial fibrillation. Pulmonology will follow the patient. 5. Acute respiratory failure. Hypoxic, most probably secondary to underlying COPD along with a combination of congestive heart failure,systolic versus diastolic dysfunction. The patient will be continued on inhaled bronchodilators. The patient will be diuresed adequately. 6. Obesity. BMI of 36.5 kg/m2. Fasting lipid panel and hemoglobin A1c will be obtained. Weight reduction will be advised. 7. Pedunculated low density mass involving the posterior/superior left kidney. Etiology unclear. The patient has multiple nodular densities in the liver and the lungs. Etiology could be some sort of malignancy. We will obtain the recommendations from pulmonology regarding biopsy of any nodules and further management will be based on these discussions. Plan. The patient will be admitted to inpatient telemetry floor. The patient will be started on a regular diet. The patient will be started on DVT prophylaxis and gastrointestinal prophylaxis. The patient will remain a FULL CODE. The rest of the patient's management will be based on clinical course, the results of diagnostic studies, and input from consultants. Based on the patient's clinical presentation, she most probably requires at least 1 midnight's stay for further management and evaluation of her clinical presentation. The case and management of this patient was fully discussed with Dr. Regan. LUIS ENRIQUE REGAN MD, AM/GALLO Conf#: [id number] DID#: [id number] SUZI
--- NOTE | 2016-07-08 14:01 | RADRPT ---
PROCEDURE: US Abdomen. CLINICAL INDICATION: abdominal pain TECHNIQUE: Multiple real-time images were acquired of the patient's right upper quadrant abdomen a nd retroperitoneum utilizing a high resolution transducer. COMPARISON: None FINDINGS: The liver demonstrates normal echogenicity. The liver is normal in size and no focal solid lesions are seen. The liver measures 16.7 cm in length. The portal vein is patent with normal direction of f low. No intrahepatic biliary dilatation is seen. No gallstones are identified within the gallbladder. There is no pericholecystic fluid or gallbladd er wall thickening. The common bile duct measures 3 mm in maximal dimension. The visualized portions of the pancreas are unremarkable. The tail of the pancreas is not seen. No free fluid is identified. The right kidney is normal in size, and demonstrate normal echogenicity and cortical thickness. The right kidney measures 11.3 cm in long dimension. There is no evidence of hydronephrosis. There are no kidney stones. RPTAT: AA IMPRESSION: Unremarkable right upper quadrant abdominal ultrasound. .Trevor Garner MD, Date Time Electronically viewed and signed by .Trevor Garner MD, MD on 07/08/2016 14:01 .S/
[2016-07-08 14:03] LABS: CARCINOEMBRYONIC ANTIGEN 2.5 ng/ml (0.0-5.0)
[2016-07-08 14:07] LABS: CANCER ANTIGEN 19-9 9.3 U/ml (0.0-37.0)
--- NOTE | 2016-07-08 14:19 | CONS ---
DATE OF ADMISSION: 07/08/2016 DATE OF CONSULTATION: 07/08/2016 ENDOCRINOLOGY CONSULTATION HISTORY OF PRESENT ILLNESS: Ms. Hilario is a 51-year-old woman who is being admitted to the hospital for atrial fibrillation with rapid ventricular response. She reports a several-dec alma long history of atrial fibrillation and has undergone prior ablation for this x2. Her regular c ardiologist is Dr. Bob Blanco of [place] who is not available as of now. She was recently disch arged from [facility] where she has been admitted twice in the last 4 months, th e most recent being 2 weeks ago. She reports that she had been on amiodarone but was advised to dis continue this due to respiratory difficulties and also due to affecting her thyroid. She informs me that she was advised that she had a thyroid issue roughly 2 years ago and was placed on methimazole , which she took for 6 months. She discontinued this secondary to not feeling any different. Barbara gomez note the quality of her history is marginal. PAST MEDICAL HISTORY: 1. Obesity. 2. Migraine syndrome. 3. Allergic rhinitis. 4. Possible asthma. 5. Organic heart disease -- chronic atrial fibrillation -- status post ablation x2. 6. Lipoma. 7. Status post x3. 8. Status post [place] without BSO. 9. Status post foot surgery x2. 10. G4, P3, AB1. 11. Usual childhood diseases. 12. History of varicella. ALLERGIES: SHE REPORTS NO KNOWN MEDICAL ALLERGIES. HOME MEDICATIONS: 1. Furosemide 40 mg a day. 2. Spironolactone 12.5 once a day. 3. Xarelto 20 mg a day. 4. Methimazole which she is taking 15 mg a day. 5. Lisinopril 20 mg a day. 6. For reasons that are unclear, she is off of her metoprolol. Please note, she denies having been on any type of pulmonary medications, but on careful questioning , she states that she does have an albuterol inhaler. HABITS: She reports she is not smoking, denies alcohol, or recreational drugs. SOCIAL HISTORY: She was born in [place] till the age of 7 and was raised in [facility]. She has an 11th grade education without experience. 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 PHYSICAL EXAMINATION: GENERAL: At the time of physical exam, she is an extremely anxious and somewhat tremulous [place] r[place] female in no ingrid distress. VITAL SIGNS: She has a pulse of 112 with an irregularly irregular rhythm, temperature 97.9, respira tions are 18 to 24, blood pressure is 143/97, pulse oximetry is 98% on 3 L. HEENT: NC/AT. PERRL, EOMI, anicteric, fundi are without note. Tympanic membranes are without note . Oropharynx demonstrates no lesions. NECK: Supple. There is a midline trachea. There is no thyromegaly. Pulses are 2+ without bruits. RESPIRATORY: Demonstrates increased AP diameter, a decreased I:E ratio. The remainder of her physical exam is notable for the tremor. LABORATORIES: Her CT scan was read out as having COPD which matches the physical examination, the b lood tests are listed. ASSESSMENT AND PLAN: 1. Hyperthyroidism. She clearly has hyperthyroidism. What I do not know is whether or not this is being induced by amiodarone or a synovial hyperthyroidism. Doing a nuclear medicine thyroid uptake and scan will be useless given the recent amiodarone. She will have an uptake of 0. As such, we w ill go ahead and treat her, but I am also going to give her dose of steroids in case this is type 2 amiodarone-induced hyperthyroidism and inflammation. We will give her a single dose to see if it he lps calm it down. Assuming this is a more production-based issue, then the methimazole will held an d we will approach this and she will need to go back on the most cardioselective beta junior we can . 2. Organic heart disease -- atrial fibrillation. It would be nice to have information from Dr. Khushbu jimenez, I am trying to get that now. 3. Chronic obstructive pulmonary disease. She needs to be on treatment for this as this is a signi ficant issue affecting her electrolytes. Further details to follow. Dictated By: EDGAR GARCÍA MD, JR/GALLO Conf#: [id number] DID#: [id number]
[2016-07-08] MEDS: METHIMAZOLE 5 MG TAB PO SCH ×3 (14:50→22:39)
[2016-07-08] MEDS: METOPROLOL (XL) 25 MG TAB PO SCH ×2 (14:50→22:27)
[2016-07-08] MEDS: SALMETEROL/FLUTICASONE 250/50 INHA INH SCH ×3 (14:51→22:39)
[2016-07-08] MEDS: LEVALBUTEROL (NEB) 0.63 MG/3 ML AMP HHN SCH ×2 (14:58→20:00)
[2016-07-08 16:18] LABS: CANCER ANTIGEN 125 43.5 U/ml (0.0-35.0)
[2016-07-08 17:02] VITALS: TEMP 97.9
[2016-07-08 17:24] VITALS: PULSE 100
[2016-07-08 17:45] VITALS: BP 138/82; PULSE 105; RESP 18
[2016-07-08 18:00] VITALS: Ht 157.5 cm; Wt 90.5 kg
[2016-07-08 18:44] LABS: CREATINE KINASE 55 IU/L (23-200)
[2016-07-08 18:54] LABS: CK-MB 1.48 ng/ml (0.0-2.4)
[2016-07-08 19:09] LABS: TROPONIN-I < 0.012 ng/ml (0.00-0.12)
[2016-07-08 19:55] VITALS: BP 154/90; RESP 18
[2016-07-08 20:24] VITALS: PULSE 117
[2016-07-08] MEDS: TIOTROPIUM 18 MCG CAPSULE INHA DEV INH SCH ×2 (21:00→22:40)
[2016-07-08] MEDS ORDERED: LISINOPRIL 20 MG TAB PO SCH (21:00)
[2016-07-08] MEDS ORDERED: CHOLECALCIFEROL 2,000 UNIT CAP PO SCH (21:00)
[2016-07-08] MEDS: POLYETHYLENE GLYCOL 17 GM PACKET PO SCH (22:26)
[2016-07-08] MEDS: DOCUSATE SODIUM 100 MG CAP PO SCH (22:26)
[2016-07-08] MEDS: FAMOTIDINE 20 MG TAB PO SCH (22:26)
[2016-07-08] MEDS: CHOLECALCIFEROL 1,000 UNIT TAB PO SCH (22:40)
[2016-07-09] VITALS (13 sets, daily range): BP systolic 120–182; BP diastolic 74–94; PULSE 105–161; RESP 18–20
[2016-07-09] MEDS: LEVALBUTEROL (NEB) 0.63 MG/3 ML AMP HHN SCH ×4 (02:29→20:50)
[2016-07-09] MEDS: METOPROLOL (XL) 25 MG TAB PO SCH ×2 (06:35→12:08)
[2016-07-09 07:44] LABS: ADD SCAN DIFF NO
[2016-07-09 07:51] LABS: BASOPHILS % 0.1 % (0.0-2.0); HEMATOCRIT 42.2 % (37.0-47.0); HEMOGLOBIN 13.3 g/dl (12.0-16.0); LYMPHOCYTES # 0.7 10^3/ul (0.8-2.9); LYMPHOCYTES % 8.7 % (15.0-51.0); MEAN CORPUSCULAR HEMOGLOBIN 27.3 pg (29.0-33.0); MEAN CORPUSCULAR HGB CONC 31.5 g/dl (32.0-37.0); MEAN CORPUSCULAR VOLUME 86.5 fl (82.0-101.0); MEAN PLATELET VOLUME 10.6 fl (7.4-10.4); MONOCYTE # 0.3 10^3/ul (0.3-0.9); MONOCYTES % 3.4 % (0.0-11.0); NEUTROPHILS % 87.2 % (39.0-77.0); PLATELET COUNT 321 10^3/UL (140-415); RED BLOOD COUNT 4.88 10^6/ul (4.20-5.40); RED CELL DISTRIBUTION WIDTH 13.8 % (11.5-14.5)
[2016-07-09 08:19] LABS: CHOL/HDL RATIO 3.5 RATIO
[2016-07-09 08:26] LABS: ALBUMIN 3.6 g/dl (3.3-4.9)
[2016-07-09 08:27] LABS: POTASSIUM 4.4 mmol/L (3.5-5.1)
[2016-07-09] MEDS: FAMOTIDINE 20 MG TAB PO SCH ×2 (08:27→21:47)
[2016-07-09] MEDS: DOCUSATE SODIUM 100 MG CAP PO SCH ×2 (08:27→21:46)
[2016-07-09] MEDS: ENOXAPARIN 100 MG/ML SYG SC SCH ×2 (08:28→21:00)
[2016-07-09] MEDS: METHIMAZOLE 5 MG TAB PO SCH (08:28)
[2016-07-09 08:29] LABS: ALBUMIN/GLOBULIN RATIO 1.09; BILIRUBIN,INDIRECT 0.4 mg/dl (0-1.1); BILIRUBIN,TOTAL 0.4 mg/dl (0.2-1.3); CREATININE 0.83 mg/dl (0.44-1.00); TOTAL PROTEIN 6.9 g/dl (6.1-8.1)
[2016-07-09] MEDS: SALMETEROL/FLUTICASONE 250/50 INHA INH SCH ×2 (08:29→21:44)
[2016-07-09] MEDS: POLYETHYLENE GLYCOL 17 GM PACKET PO SCH ×2 (08:29→21:47)
[2016-07-09 08:33] LABS: MAGNESIUM 1.9 mg/dl (1.7-2.5); PHOSPHORUS 4.2 mg/dl (2.5-4.9)
[2016-07-09] MEDS ORDERED: AMIODARONE 200 MG TAB PO SCH (09:00)
[2016-07-09] MEDS ORDERED: ENOXAPARIN 40 MG/0.4 ML SYG SC SCH (09:00)
[2016-07-09] MEDS ORDERED: VALSARTAN 160 MG TAB PO SCH (09:00)
[2016-07-09] MEDS ORDERED: FUROSEMIDE 40 MG TAB PO SCH (09:00)
[2016-07-09 10:08] LABS: BARBITURATES Negative (NEGATIVE); BENZODIAZEPINES Negative (NEGATIVE); CANNABINOIDS Negative (NEGATIVE); COCAINE Negative (NEGATIVE); OPIATES Positive (NEGATIVE)
[2016-07-09] MEDS ORDERED: DIGOXIN 500 MCG INJ IV ONE (13:30)
[2016-07-09] MEDS ORDERED: RIVA20TA PO (13:41)
[2016-07-09] MEDS ORDERED: LISI20TA11 PO (13:41)
[2016-07-09] MEDS ORDERED: METH-493 PO (13:41)
[2016-07-09] MEDS ORDERED: ALDS PO (13:42)
--- NOTE | 2016-07-09 13:56 | CONS ---
Date/Time of Note Date/Time of Note DATE: 07/09/16 TIME: 13:51 Assessment/Plan Assessment/Plan Problems: (1) Essential hypertension Status: Chronic Comment: Adjust medications including of the regimen to make this as simple as possible. There is significant issues of compliance in this individual and having a simplified medical regimen will be the only way we can make any progress with her. (2) COPD (chronic obstructive pulmonary disease) Status: Chronic Comment: Her breathing is better with adequate treatment of the COPD using standard medications in a simple pattern Qualifiers: COPD type: emphysema Emphysema type: unspecified Qualified Code: J43.9 - Pulmonary emphysema, unspecified emphysema type (3) Cardiomyopathy Status: Chronic Comment: She is being seen by cardiology for this. She is on a beta-junior with ARA inhibitor. Strike Warfare/Missile Systems Officer is strong about the usage of propanolol although personally I would prefer to use a different drug specifically either metoprolol or carvedilol. Once we have her thyroid under better control then I think that the carvedilol would probably be the best choice for her. With this only disadvantage being it is twice a day medicine Qualifiers: Cardiomyopathy type: unspecified Qualified Code: I42.9 - Cardiomyopathy, unspecified type (4) Methamphetamine abuse Status: Chronic Comment: Patient does have dialysis all we have a positive tox screen. Of social services speak to her (5) Atrial fibrillation with rapid ventricular response Status: Acute Comment: She still has a rapid ventricular response she is being medication adjusted for this (6) Hyperthyroidism Status: Acute Comment: On medications to suppress please note that it is very unclear when and if she had amiodarone. Regardless there is no point giving her amiodarone now for chronic A. fib Consultation Date/Type/Reason Admit Date/Time Jul 08, 2016 at 08:05 Initial Consult Date 07/08/16 Type of Consultation: Endocrinology Reason for Consultation Hyperthyroidism with atrial fibrillation with rapid ventricular response; chemical dependency with crystal methamphetamine usage; cardiomyopathy with chronic atrial fibrillation 24 HR Interval Summary Free Text/Dictation Patient reports she is feeling better today. Exam/Review of Systems Vital Signs Vitals Vital Signs Date Time Temp Pulse Resp B/P Pulse Ox O2 Delivery O2 Flow Rate FiO2 07/09/16 12:37 124 07/09/16 11:40 97.9 20 132/93 95 07/09/16 08:17 21 07/08/16 17:45 Room Air 4/20/17 17:02 2.0 Intake and Output 07/08/16 07/08/16 07/09/16 15:00 23:00 07:00 Intake Total 490 ml 550 ml Output Total 750 ml Balance 490 ml -200 ml Exam Constitutional: alert, oriented Neck: non-tender, supple, thyromegaly Respiratory: clear to auscultation, normal air movement Cardiovascular: irregular rhythm, nl pulses Results Result Diagram: 07/09/16 0635 07/09/16 0635 Results 24 hrs Laboratory Tests Test 07/08/16 18:00 07/09/16 06:35 Creatine Kinase 55 Creatine Kinase Index 2.7 Creatinine Kinase MB (Mass) 1.48 Troponin I < 0.012 White Blood Count 8.0 # Red Blood Count 4.88 Hemoglobin 13.3 Hematocrit 42.2 Mean Corpuscular Volume 86.5 Mean Corpuscular Hemoglobin 27.3 L Mean Corpuscular Hemoglobin Concent 31.5 L Red Cell Distribution Width 13.8 Platelet Count 321 Mean Platelet Volume 10.6 H Neutrophils % 87.2 H Lymphocytes % 8.7 L Monocytes % 3.4 Eosinophils % 0.0 Basophils % 0.1 Nucleated Red Blood Cells % 0.0 Neutrophils # 7.0 Lymphocytes # 0.7 L Monocytes # 0.3 Eosinophils # 0.0 Basophils # 0.0 Nucleated Red Blood Cells # 0.0 Erythrocyte Sedimentation Rate 16 Sodium Level 142 Potassium Level 4.4 Chloride Level 102 Carbon Dioxide Level 28 Anion Gap 16 Blood Urea Nitrogen 18 Creatinine 0.83 Glucose Level 120 Calcium Level 9.0 Phosphorus Level 4.2 Magnesium Level 1.9 Total Bilirubin 0.4 Direct Bilirubin 0.00 Indirect Bilirubin 0.4 Aspartate Amino Transf (AST/SGOT) 21 Alanine Aminotransferase (ALT/SGPT) 45 Alkaline Phosphatase 96 Total Protein 6.9 Albumin 3.6 Globulin 3.30 H Albumin/Globulin Ratio 1.09 Triglycerides Level 72 Cholesterol Level 127 LDL Cholesterol, Calculated 77 HDL Cholesterol 36 L Cholesterol/HDL Ratio 3.5 Medications Medications Current Medications Hydralazine HCl (Apresoline) 10 mg Q6H PRN IV SBP>160; Start 07/08/16 at 10:30 Lorazepam (Ativan) 0.5 mg Q6H PRN IV ANXIETY; Start 07/08/16 at 10:30 Ondansetron HCl (Zofran Inj) 4 mg Q6H PRN IV NAUSEA AND/OR VOMITING; Start at 10:30 Acetaminophen (Tylenol Tab) 650 mg Q6H PRN PO PAIN LEVEL 1-3 OR FEVER; Start at 10:30 Acetaminophen/ Hydrocodone Bitart ([place] (5/325)) 1 tab Q6H PRN PO PAIN LEVEL 4 -6 Last administered on 07/09/16 13:48; Admin Dose 1 TAB; Start 07/08/16 at 10: 30 Morphine Sulfate (morphine) 2 mg Q4H PRN IV PAIN LEVEL 7-10 Last administered on 07/08/16 22:41; Admin Dose 2 MG; Start 07/08/16 at 10:30 Magnesium Hydroxide (Milk Of Mag) 30 ml DAILY PRN PO CONSTIPATION; Start at 10:30 Bisacodyl (Dulcolax) 5 mg DAILY PRN PO CONSTIPATION; Start 07/08/16 at 10:30 Famotidine (Pepcid) 20 mg Q12 PO Last administered on 07/09/16 08:27; Admin Dose 20 MG; Start 07/08/16 at 21:00 Polyethylene Glycol (Miralax) 17 gm BID PO Last administered on 07/09/16 08:29 ; Admin Dose 17 GM; Start 07/08/16 at 21:00 Docusate Sodium (Colace) 100 mg BID PO Last administered on 07/09/16 08:27; Admin Dose 100 MG; Start 07/08/16 at 21:00 Enoxaparin Sodium (Lovenox) 90 mg Q12 SC Last administered on 07/09/16 08:28; Admin Dose 90 MG; Start 07/08/16 at 11:30 Salmeterol Xinafoate/ Fluticasone (Advair 250/50 Diskus) 1 inh BID INH Last administered on 07/09/16 08:29; Admin Dose 1 INH; Start 07/08/16 at 13:30 Tiotropium Whitney (Spiriva) 1 inh QHS INH Last administered on 07/08/16 22:40 ; Admin Dose 1 INH; Start 07/08/16 at 21:00 Cholecalciferol (Vitamin D) 2,000 unit QHS PO ; Start 07/08/16 at 22:40 Propranolol HCl (Inderal) 20 mg TID PO ; Start 07/09/16 at 21:00 Digoxin (Digoxin) 125 mcg Q4 IV ; Start 07/09/16 at 17:00; Stop 07/10/16 at 01: 01 Lisinopril (Zestril) 5 mg HS PO ; Start 07/09/16 at 21:00 EDGAR GARCÍA MD Jul 09, 2016 13:56
--- NOTE | 2016-07-09 14:43 | CONS ---
DATE OF ADMISSION: 07/08/2016 DATE OF CONSULTATION: 07/09/2016 TYPE OF CONSULTATION: Cardiology REASON FOR CONSULTATION: Atrial fibrillation with rapid ventricular response. CHIEF COMPLAINT: Shortness of breath. HISTORY OF PRESENT ILLNESS: Thank you for this referral. History obtained from the patient, from jose boateng of the old chart, discussion with the staff and physicians. This is a 51-year-old -Am erican female with history of atrial fibrillation, status post what appears to be cardioversion and possibly ablation, who also has history of noncompliance with her medications, who was admitted with the above complaint. The patient has been in multiple hospitals, recently she was here in April at which time she left [facility]. She was supposed to be admitted at that time for AFib with rapid ventr icular response; however, she could not stay in the hospital. 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 According to her notes that she has, she w as apparently told that she had hyperthyroidism at that time. She was taken off on amiodarone. She also is supposed to be taking Xarelto, which she is not taking. She also is to take Cardizem, she is not taking. She came in with increasing shortness of breath, cough, wheezing and atrial fibrilla tion with rapid ventricular response. Currently, heart rate has improved and . PAST MEDICAL HISTORY: History of atrial fibrillation, status post cardioversion, possible ablation, history of congestive heart failure, COPD. MEDICATIONS AT HOME: She apparently was just discharged from outside hospital and was advised to ta ke: 1. Cardizem 60 mg q.6h., which she is not taking. 2. She was supposed to take Lasix 40 daily, which she says she is taking. 3. Lisinopril 20 daily, which she states she is taking. 4. Methimazole 0.5, which she is not taking. 5. Metoprolol q.6h., which she is not taking. 6. Xarelto, which again she is not taking. 7. Aldactone, which she says she is taking. FAMILY HISTORY: No reported early coronary artery disease. ALLERGIES: NO REPORTED DRUG ALLERGIES. SOCIAL HISTORY: The patient actively smokes. She says she is cutting down. REVIEW OF SYSTEMS: As above mentioned, she denied all other. PHYSICAL EXAMINATION: VITAL SIGNS: Temperature 97.9, heart rate of 120, blood pressure 132/93, respiratory rate of 20, sa turating 95%. HEENT: Normocephalic, atraumatic. Pupils are equal. CARDIOVASCULAR: Irregularly, irregular, tachycardic. PULMONARY: With no wheezes heard now. GASTROINTESTINAL: Soft, nontender. EXTREMITIES: With trivial lower extremity edema. NEUROLOGIC: Awake and alert. PSYCHIATRIC: Calm and pleasant now. DERMATOLOGIC: There are multiple tattoos all over her body. LABORATORY AND DIAGNOSTIC DATA: Shows sodium 142, potassium 4.4, BUN of 18, creatinine 0.82, glucos e 120. LDL is 77, cholesterol 127, HDL is 37. WBC of 18, hemoglobin 13.3, platelets of 201. CT pulmonary angiogram shows no PE. Aneurysmal dilation of ascending aorta with a diameter of 4.4. Multiple pulmonary nodules. COPD. Echocardiogram was personally reviewed. It shows cardiomyopath y. TSH is less than 0.015. Free T4 is elevated at 2.49. EKG showed atrial fibrillation with rapid ventricular response. ASSESSMENT: 1. atrial fibrillation with rapid ventricular response. 2. Dyspnea, multifactorial, possibly secondary to the above in addition to her chronic obstructive pulmonary disease. 3. Chronic obstructive pulmonary disease exacerbation. 4. Hyperthyroidism, unclear if this is related to amiodarone versus not. 5. Hypertension. 6. Dyslipidemia. 7. History of poor compliance. RECOMMENDATIONS: The patient has been started on Lovenox for anticoagulation. I will continue it f or now and upon discharge, she can be discharged on Xarelto or Eliquis, whatever she would agree to take. I will change her metoprolol to propranolol given her hyperthyroidism. Also try to load her with digoxin in order to get the heart rate better controlled, If not controlled, Cardizem drip claire l be continued. She has been placed on both valsartan and lisinopril. I will discontinue the Diova n and put her on a low dose of lisinopril so we can avoid hypotension. Steroids have been started, initiated as per endocrine. Thyroid medication as per endocrine. Continue to monitor on telemetry. Dictated By: TUTU HERMAN/GALLO Conf#: [id number] DID#: [id number] CC: LUIS ENRIQUE GRADY VP CUSTOMER DEVELOPMENT; BASIA REGAN MD;*[facility]*
--- NOTE | 2016-07-09 16:10 | CONS ---
Date/Time of Note Date/Time of Note DATE: 07/09/16 TIME: 16:07 Consult Date/Type/Reason Admit Date/Time Jul 08, 2016 at 08:05 Initial Consult Date 07/08/16 Type of Consultation: Pulmonary Subjective Better, less shortness of breath. Objective Vital Signs Date Time Temp Pulse Resp B/P Pulse Ox O2 Delivery O2 Flow Rate FiO2 07/09/16 15:27 98.5 120 20 128/93 95 07/09/16 14:28 21 07/08/16 17:45 Room Air 07/08/16 17:02 2.0 Intake and Output 07/08/16 07/08/16 07/09/16 15:00 23:00 07:00 Intake Total 490 ml 550 ml Output Total 750 ml Balance 490 ml -200 ml Exam GENERAL: Comfortable no new events. VITAL SIGNS: per chart NECK: Supple. No JVD or lymphadenopathy. CARDIAC EXAM: S1, S2. No added sounds or murmurs. CHEST: clear bilaterally, No added sounds, rales or wheezes ABDOMEN: Soft, nontender. No guarding or rebound. EXTREMITIES: No cyanosis, clubbing or edema. NEUROLOGIC: Generalized weakness. No focal deficits. Results/Medications Result Diagram: 07/09/16 0635 07/09/16 0635 Results 24 hrs Laboratory Tests Test 07/08/16 18:00 07/09/16 06:35 Creatine Kinase 55 Creatine Kinase Index 2.7 Creatinine Kinase MB (Mass) 1.48 Troponin I < 0.012 White Blood Count 8.0 # Red Blood Count 4.88 Hemoglobin 13.3 Hematocrit 42.2 Mean Corpuscular Volume 86.5 Mean Corpuscular Hemoglobin 27.3 L Mean Corpuscular Hemoglobin Concent 31.5 L Red Cell Distribution Width 13.8 Platelet Count 321 Mean Platelet Volume 10.6 H Neutrophils % 87.2 H Lymphocytes % 8.7 L Monocytes % 3.4 Eosinophils % 0.0 Basophils % 0.1 Nucleated Red Blood Cells % 0.0 Neutrophils # 7.0 Lymphocytes # 0.7 L Monocytes # 0.3 Eosinophils # 0.0 Basophils # 0.0 Nucleated Red Blood Cells # 0.0 Erythrocyte Sedimentation Rate 16 Sodium Level 142 Potassium Level 4.4 Chloride Level 102 Carbon Dioxide Level 28 Anion Gap 16 Blood Urea Nitrogen 18 Creatinine 0.83 Glucose Level 120 Calcium Level 9.0 Phosphorus Level 4.2 Magnesium Level 1.9 Total Bilirubin 0.4 Direct Bilirubin 0.00 Indirect Bilirubin 0.4 Aspartate Amino Transf (AST/SGOT) 21 Alanine Aminotransferase (ALT/SGPT) 45 Alkaline Phosphatase 96 Total Protein 6.9 Albumin 3.6 Globulin 3.30 H Albumin/Globulin Ratio 1.09 Triglycerides Level 72 Cholesterol Level 127 LDL Cholesterol, Calculated 77 HDL Cholesterol 36 L Cholesterol/HDL Ratio 3.5 Medications Current Medications Hydralazine HCl (Apresoline) 10 mg Q6H PRN IV SBP>160; Start 07/08/16 at 10:30 Lorazepam (Ativan) 0.5 mg Q6H PRN IV ANXIETY; Start 07/08/16 at 10:30 Ondansetron HCl (Zofran Inj) 4 mg Q6H PRN IV NAUSEA AND/OR VOMITING; Start at 10:30 Acetaminophen (Tylenol Tab) 650 mg Q6H PRN PO PAIN LEVEL 1-3 OR FEVER; Start at 10:30 Acetaminophen/ Hydrocodone Bitart ([place] (5/325)) 1 tab Q6H PRN PO PAIN LEVEL 4 -6 Last administered on 07/09/16 13:48; Admin Dose 1 TAB; Start 07/08/16 at 10: 30 Morphine Sulfate (morphine) 2 mg Q4H PRN IV PAIN LEVEL 7-10 Last administered on 07/08/16 22:41; Admin Dose 2 MG; Start 07/08/16 at 10:30 Magnesium Hydroxide (Milk Of Mag) 30 ml DAILY PRN PO CONSTIPATION; Start at 10:30 Bisacodyl (Dulcolax) 5 mg DAILY PRN PO CONSTIPATION; Start 07/08/16 at 10:30 Famotidine (Pepcid) 20 mg Q12 PO Last administered on 07/09/16 08:27; Admin Dose 20 MG; Start 07/08/16 at 21:00 Polyethylene Glycol (Miralax) 17 gm BID PO Last administered on 07/09/16 08:29 ; Admin Dose 17 GM; Start 07/08/16 at 21:00 Docusate Sodium (Colace) 100 mg BID PO Last administered on 07/09/16 08:27; Admin Dose 100 MG; Start 07/08/16 at 21:00 Enoxaparin Sodium (Lovenox) 90 mg Q12 SC Last administered on 07/09/16 08:28; Admin Dose 90 MG; Start 07/08/16 at 11:30 Salmeterol Xinafoate/ Fluticasone (Advair 250/50 Diskus) 1 inh BID INH Last administered on 07/09/16 08:29; Admin Dose 1 INH; Start 07/08/16 at 13:30 Tiotropium [place] (Spiriva) 1 inh QHS INH Last administered on 07/08/16 22:40 ; Admin Dose 1 INH; Start 07/08/16 at 21:00 Cholecalciferol (Vitamin D) 2,000 unit QHS PO ; Start 07/08/16 at 22:40 Propranolol HCl (Inderal) 20 mg TID PO ; Start 07/09/16 at 21:00 Digoxin (Digoxin) 125 mcg Q4 IV ; Start 07/09/16 at 17:00; Stop 07/10/16 at 01: 01 Lisinopril (Zestril) 5 mg HS PO ; Start 07/09/16 at 21:00 Assessment/Plan Chief Complaint/Hosp Course Assessment 1. afib with RVR 2. Mild chf 3. No PE on CTPA 4. Obesity. Plan 1. Rate control 2. IS 3. O2 as needed. 4. Encourage ambulation. Problems: JOAQUIN JEFFREY MD, [facility] Jul 09, 2016 16:10
--- NOTE | 2016-07-09 16:17 | PN ---
Date/Time of Note Date/Time of Note DATE: 07/09/16 TIME: 16:10 Assessment/Plan VTE Prophylaxis VTE Prophylaxis Intervention: LMWH Lines/Catheters IV Catheter Type (from Nrs): Saline Lock Assessment/Plan Assessment/Plan 1. Atrial fibrillation with rapid ventricular response, on digxin, amiodarone, and inderal, lovenox, follow up with cardiology 2. Chronic obstructive pulmonary disease exacerbation. 3. Hyperthyroidism, follow up with Dr. Vallejo 5. Hypertension.controlled 6. Dyslipidemia. 7. History of poor compliance. Subjective 24 Hr Interval Summary Free Text/Dictation palpitation. no OSB Exam/Review of Systems Vital Signs Vitals Vital Signs Date Time Temp Pulse Resp B/P Pulse Ox O2 Delivery O2 Flow Rate FiO2 07/09/16 15:27 98.5 120 20 128/93 95 07/09/16 14:28 21 07/08/16 17:45 Room Air 07/08/16 17:02 2.0 Intake and Output 07/08/16 07/08/16 07/09/16 15:00 23:00 07:00 Intake Total 490 ml 550 ml Output Total 750 ml Balance 490 ml -200 ml Exam Constitutional: alert, oriented, well developed Psych: nl mood/affect, no complaints Head: atraumatic, normocephalic Eyes: EOMI, PERRL, nl conjunctiva, nl lids ENMT: mucosa pink and moist, nl external ears & nose, nl lips & teeth, nl nasal mucosa & septum Neck: non-tender, supple Respiratory: clear to auscultation, normal air movement, No congested cough, No crackles/rales, No diminished breath sounds, No intercostal retraction, No labored breathing, No other, No respirations, No tactile fremitus, No wheezing Cardiovascular: irregular rhythm, nl pulses, No S3, No S4, No bruits, No diastolic murmur, No edema, No gallop, No jugular venous distention (JVD), No murmurs/extra sounds, No other, No rub, No systolic murmur Gastrointestinal: nl liver, spleen, non-tender, soft, No ascites, No bowel sounds, No distended, No firm, No hepatomegaly, No mass , No other, No rebound or guarding, No splenomegaly, No surgical scars, No tender Musculoskeletal: nl extremities to inspection Extremities: normal pulses, No calf tenderness, No clubbing, No cyanosis, No edema, No other, No palpable cord, No pitting pedal edema, No tenderness Neurological: ENTERPRISE ENGINEER II-XII intact, nl mental status, nl speech, nl strength Skin: nl turgor Lymph: nl lymph nodes Results Result Diagram: 07/09/16 0635 07/09/16 0635 Results 24 hrs Laboratory Tests Test 07/08/16 18:00 07/09/16 06:35 Creatine Kinase 55 Creatine Kinase Index 2.7 Creatinine Kinase MB (Mass) 1.48 Troponin I < 0.012 White Blood Count 8.0 # Red Blood Count 4.88 Hemoglobin 13.3 Hematocrit 42.2 Mean Corpuscular Volume 86.5 Mean Corpuscular Hemoglobin 27.3 L Mean Corpuscular Hemoglobin Concent 31.5 L Red Cell Distribution Width 13.8 Platelet Count 321 Mean Platelet Volume 10.6 H Neutrophils % 87.2 H Lymphocytes % 8.7 L Monocytes % 3.4 Eosinophils % 0.0 Basophils % 0.1 Nucleated Red Blood Cells % 0.0 Neutrophils # 7.0 Lymphocytes # 0.7 L Monocytes # 0.3 Eosinophils # 0.0 Basophils # 0.0 Nucleated Red Blood Cells # 0.0 Erythrocyte Sedimentation Rate 16 Sodium Level 142 Potassium Level 4.4 Chloride Level 102 Carbon Dioxide Level 28 Anion Gap 16 Blood Urea Nitrogen 18 Creatinine 0.83 Glucose Level 120 Calcium Level 9.0 Phosphorus Level 4.2 Magnesium Level 1.9 Total Bilirubin 0.4 Direct Bilirubin 0.00 Indirect Bilirubin 0.4 Aspartate Amino Transf (AST/SGOT) 21 Alanine Aminotransferase (ALT/SGPT) 45 Alkaline Phosphatase 96 Total Protein 6.9 Albumin 3.6 Globulin 3.30 H Albumin/Globulin Ratio 1.09 Triglycerides Level 72 Cholesterol Level 127 LDL Cholesterol, Calculated 77 HDL Cholesterol 36 L Cholesterol/HDL Ratio 3.5 Medications Medications Current Medications Hydralazine HCl (Apresoline) 10 mg Q6H PRN IV SBP>160; Start 07/08/16 at 10:30 Lorazepam (Ativan) 0.5 mg Q6H PRN IV ANXIETY; Start 07/08/16 at 10:30 Ondansetron HCl (Zofran Inj) 4 mg Q6H PRN IV NAUSEA AND/OR VOMITING; Start at 10:30 Acetaminophen (Tylenol Tab) 650 mg Q6H PRN PO PAIN LEVEL 1-3 OR FEVER; Start at 10:30 Acetaminophen/ Hydrocodone Bitart ([place] (5/325)) 1 tab Q6H PRN PO PAIN LEVEL 4 -6 Last administered on 07/09/16 13:48; Admin Dose 1 TAB; Start 07/08/16 at 10: 30 Morphine Sulfate (morphine) 2 mg Q4H PRN IV PAIN LEVEL 7-10 Last administered on 07/08/16 22:41; Admin Dose 2 MG; Start 07/08/16 at 10:30 Magnesium Hydroxide (Milk Of Mag) 30 ml DAILY PRN PO CONSTIPATION; Start at 10:30 Bisacodyl (Dulcolax) 5 mg DAILY PRN PO CONSTIPATION; Start 07/08/16 at 10:30 Famotidine (Pepcid) 20 mg Q12 PO Last administered on 07/09/16 08:27; Admin Dose 20 MG; Start 07/08/16 at 21:00 Polyethylene Glycol (Miralax) 17 gm BID PO Last administered on 07/09/16 08:29 ; Admin Dose 17 GM; Start 07/08/16 at 21:00 Docusate Sodium (Colace) 100 mg BID PO Last administered on 07/09/16 08:27; Admin Dose 100 MG; Start 07/08/16 at 21:00 Enoxaparin Sodium (Lovenox) 90 mg Q12 SC Last administered on 07/09/16 08:28; Admin Dose 90 MG; Start 07/08/16 at 11:30 Salmeterol Xinafoate/ Fluticasone (Advair 250/50 Diskus) 1 inh BID INH Last administered on 07/09/16 08:29; Admin Dose 1 INH; Start 07/08/16 at 13:30 Tiotropium [place] (Spiriva) 1 inh QHS INH Last administered on 07/08/16 22:40 ; Admin Dose 1 INH; Start 07/08/16 at 21:00 Cholecalciferol (Vitamin D) 2,000 unit QHS PO ; Start 07/08/16 at 22:40 Propranolol HCl (Inderal) 20 mg TID PO ; Start 07/09/16 at 21:00 Digoxin (Digoxin) 125 mcg Q4 IV ; Start 07/09/16 at 17:00; Stop 07/10/16 at 01: 01 Lisinopril (Zestril) 5 mg HS PO ; Start 07/09/16 at 21:00 NIKKI SANDOVAL MD Jul 09, 2016 16:17
[2016-07-09] MEDS: DIGOXIN 500 MCG INJ IV SCH ×2 (17:33→21:51)
[2016-07-09] MEDS ORDERED: LISINOPRIL 20 MG TAB PO SCH (21:00)
[2016-07-09] MEDS ORDERED: LISINOPRIL 5 MG TAB PO SCH (21:00)
[2016-07-09] MEDS: TIOTROPIUM 18 MCG CAPSULE INHA DEV INH SCH (21:44)
[2016-07-09] MEDS: CHOLECALCIFEROL 1,000 UNIT TAB PO SCH (21:46)
[2016-07-09] MEDS: PROPRANOLOL 20 MG TAB PO SCH (21:50)
[2016-07-10] VITALS (7 sets, daily range): BP systolic 160–181; BP diastolic 86–121; PULSE 99–113; RESP 18–20
[2016-07-10] MEDS: DIGOXIN 500 MCG INJ IV SCH (01:24)
[2016-07-10] MEDS: LEVALBUTEROL (NEB) 0.63 MG/3 ML AMP HHN SCH ×2 (02:18→08:11)
[2016-07-10] MEDS ORDERED: METHIMAZOLE 5 MG TAB PO SCH (08:00)
[2016-07-10] MEDS: ENOXAPARIN 100 MG/ML SYG SC SCH (09:00)
--- NOTE | 2016-07-10 09:12 | PDOCDIS ---
Discharge Instructions DIAGNOSIS Discharge Diagnosis: Chronic atrial fibrillation; hyperthyroidism; COPD; methamphetamine usage CONDITION Patient Condition: Fair HOME CARE INSTRUCTIONS: Diet Instructions: Regular ACTIVITY: Activity Restrictions: No Restrictions Do not operate Power Tool FOLLOW UP/APPOINTMENTS Appointments With primary care physician within [address] Vallejo in 3 weeks EDGAR VALLEJO MD Jul 10, 2016 09:12
[2016-07-10] MEDS ORDERED: ADV25050 INH (09:17)
[2016-07-10] MEDS ORDERED: METO50TA16 PO (09:17)
[2016-07-10] MEDS ORDERED: TIOT18CA INH (09:17)
[2016-07-10] MEDS ORDERED: METH-493 PO (09:17)
[2016-07-10] MEDS ORDERED: LISI20TA11 PO (09:17)
[2016-07-10] MEDS ORDERED: RIVA20TA PO (09:17)
--- NOTE | 2016-07-10 09:22 | DS ---
Date/Time of Note Date/Time of Note DATE: 07/10/16 TIME: 09: Discharge Summary Admission/Discharge Info Admit Date/Time Jul 08, 2016 at 08:05 Discharge Date/Time 07/10/2016 Final Diagnosis Chronic atrial fibrillation with rapid ventricular response; hyperthyroidism; medication noncompliance; crystal methamphetamine usage; COPD; hypertension; Patient Condition: Fair Consults Endocrinology; cardiology Dr. Calloway Hx of Present Illness This is a 51-year-old female patient with past medical history of atrial fibrillation, status post cardiac ablation approximately 2 years ago at [facility], essential hypertension and hyperthyroidism who came to the emergency room with chief complaint of dyspnea and palpitations that has been going on for 2 to 3 days. The patient verbalized the dyspnea as exertional and unable to even exert minimally. The patient denied any chest pain. The patient was complaining of mild palpitations. The patient denied any fevers or chills. The patient was complaining of abdominal pain and constipation. Denies any diarrhea. She denied any dysuria or hematuria. The patient denied any syncope or presyncope. The patient usually follows up with a geospatial technician in [place]. Hospital Course Assessment 1. afib with RVR 2. Mild chf 3. No PE on CTPA 4. Obesity. Plan 1. Rate control 2. IS 3. O2 as needed. 4. Encourage ambulation. 51-year-old woman who came in with shortness of breath. Treatment of both the atrial fibrillation with rapid ventricular response using beta-blockade and her underlying COPD resulted in clinical subjective and objective improvement. She was not in thyroid storm or threatening thyroid storm. It is unclear exactly when she was on amiodarone or not on amiodarone however amiodarone is not the appropriate drug in this setting. For now she will be discharged on new regimen. She will follow-up with cardiology as well as with my office in the next 3 weeks. We are making sure to give her her medications and doing a way that will be user-friendly. Her rehabilitation potential is fair she is not a hazard to herself or others she has no known communicable diseases. Please note regarding the crystal methamphetamine usage that she has though she was met with by the forensic social worker and declined offers for assistance Home Meds Active Scripts Salmeterol Xinaf/Fluticasone* (Advair*) 250-50 Diskus Inhaler, 1 INH INH BID for 30 Days, 1 Refill Prov:EDGAR GARCÍA MD 07/10/16 Metoprolol Succinate* (Toprol XL*) 50 Mg Tab.er.24h, 50 MG PO DAILY for 30 Days , #30 TAB 1 Refill Prov:EDGAR GARCÍA MD 07/10/16 Methimazole* (Methimazole*) 5 Mg Tablet, 20 MG PO WITH BREAKFAST for 30 Days, TAB 4 Refills Prov:EDGAR GARCÍA MD 07/10/16 Tiotropium [place]* (Spiriva*) 18 Mcg Cap.w.dev, 1 INH INH QHS for 30 Days, 1 Refill Prov:EDGAR GARCÍA MD 07/10/16 Rivaroxaban* (Xarelto*) 20 Mg Tablet, 20 MG PO WITH DINNER for 30 Days, TAB 1 Refill Prov:EDGAR GARCÍA MD 07/10/16 Lisinopril* (Lisinopril*) 20 Mg Tablet, 20 MG PO DAILY, #30 TAB 3 Refills Prov:EDGAR GARCÍA MD 07/10/16 Reported Medications Spironolactone* (Aldactone*) 5 Mg/Ml (COMPOUNDED) Susp, 12.5 MG PO BID for 30 Days, ML (COMPOUNDED) 07/09/16 Methimazole* (Methimazole*) 5 Mg Tablet, 5 MG PO Q8, TAB 07/09/16 Furosemide* (Furosemide*) 40 Mg Tablet, 40 MG PO DAILY, TAB 05/10/16 Discontinued Reported Medications Albuterol/Ipratropium* (Combivent Respimat*) 20-100 Mcg/Inh - 4 Gm Aer.w.adap, 1 -2 PUFF INHALATION QID, #1 INHALER 05/10/16 Valsartan* (Diovan*) 160 Mg Tablet, 160 MG PO DAILY, TAB 05/10/16 Amiodarone Hcl* (Amiodarone Hcl*) 200 Mg Tablet, 200 MG PO DAILY, #30 TAB 05/10/16 EDGAR GARCÍA MD Jul 10, 2016 09:22
[2016-07-10] MEDS: PROPRANOLOL 20 MG TAB PO SCH (09:29)
[2016-07-10] MEDS: DOCUSATE SODIUM 100 MG CAP PO SCH (09:29)
[2016-07-10] MEDS: POLYETHYLENE GLYCOL 17 GM PACKET PO SCH (09:29)
[2016-07-10] MEDS: FAMOTIDINE 20 MG TAB PO SCH (09:29)
[2016-07-10] MEDS: SALMETEROL/FLUTICASONE 250/50 INHA INH SCH (09:30)
--- NOTE | 2016-07-10 11:20 | PN ---
Date/Time of Note Date/Time of Note DATE: 07/10/16 TIME: 11:19 Assessment/Plan VTE Prophylaxis VTE Prophylaxis Intervention: SCD's Lines/Catheters IV Catheter Type (from Nrsg): Saline Lock Assessment/Plan Assessment/Plan 1. atrial fibrillation with rapid ventricular response. 2. Dyspnea, multifactorial, possibly secondary to the above in addition to her chronic obstructive pulmonary disease. 3. Chronic obstructive pulmonary disease exacerbation. 4. Hyperthyroidism, unclear if this is related to amiodarone versus not. 5. Hypertension. 6. Dyslipidemia. 7. History of poor compliance. RECOMMENDATIONS: -continue cv meds -on anticoagulation -d/c planning Subjective 24 Hr Interval Summary Free Text/Dictation The aptient is dong well with no symptoms Exam/Review of Systems Vital Signs Vitals Vital Signs Date Time Temp Pulse Resp B/P Pulse Ox O2 Delivery O2 Flow Rate FiO2 07/10/16 08:24 107 07/10/16 07:35 97.8 18 160/86 100 07/10/16 02:21 21 07/08/16 17:45 Room Air 07/08/16 17:02 2.0 Intake and Output 07/09/16 07/09/16 07/10/16 15:00 23:00 07:00 Intake Total 1900 ml 1250 ml Balance 1900 ml 1250 ml Results Result Diagram: 07/09/16 0635 07/09/16 0635 Medications Medications Current Medications Hydralazine HCl (Apresoline) 10 mg Q6H PRN IV SBP>160; Start 07/08/16 at 10:30 Lorazepam (Ativan) 0.5 mg Q6H PRN IV ANXIETY; Start 07/08/16 at 10:30 Ondansetron HCl (Zofran Inj) 4 mg Q6H PRN IV NAUSEA AND/OR VOMITING; Start at 10:30 Acetaminophen (Tylenol Tab) 650 mg Q6H PRN PO PAIN LEVEL 1-3 OR FEVER; Start at 10:30 Acetaminophen/ Hydrocodone Bitart ([place] (5/325)) 1 tab Q6H PRN PO PAIN LEVEL 4 -6 Last administered on 07/09/16t 13:48; Admin Dose 1 TAB; Start 07/08/16 at 10: 30 Morphine Sulfate (morphine) 2 mg Q4H PRN IV PAIN LEVEL 7-10 Last administered on 07/08/16 22:41; Admin Dose 2 MG; Start 07/08/16 at 10:30 Magnesium Hydroxide (Milk Of Mag) 30 ml DAILY PRN PO CONSTIPATION; Start at 10:30 Bisacodyl (Dulcolax) 5 mg DAILY PRN PO CONSTIPATION; Start 07/08/16 at 10:30 Famotidine (Pepcid) 20 mg Q12 PO Last administered on 07/10/16 09:29; Admin Dose 20 MG; Start 07/08/16 at 21:00 Polyethylene Glycol (Miralax) 17 gm BID PO Last administered on 07/10/16 09:29 ; Admin Dose 17 GM; Start 07/08/16 at 21:00 Docusate Sodium (Colace) 100 mg BID PO Last administered on 07/10/16 09:29; Admin Dose 100 MG; Start 07/08/16 at 21:00 Enoxaparin Sodium (Lovenox) 90 mg Q12 SC Last administered on 07/09/16 08:28; Admin Dose 90 MG; Start 07/08/16 at 11:30 Salmeterol Xinafoate/ Fluticasone (Advair 250/50 Diskus) 1 inh BID INH Last administered on 07/10/16 09:30; Admin Dose 1 INH; Start 07/08/16 at 13:30 Tiotropium [place] (Spiriva) 1 inh QHS INH Last administered on 07/09/16 21:44 ; Admin Dose 1 INH; Start 07/08/16 at 21:00 Cholecalciferol (Vitamin D) 2,000 unit QHS PO Last administered on 07/09/16 21 :46; Admin Dose 2,000 UNIT; Start 07/08/16 at 22:40 Propranolol HCl (Inderal) 20 mg TID PO Last administered on 07/10/16 09:29; Admin Dose 20 MG; Start 07/09/16 at 21:00 Lisinopril (Zestril) 5 mg HS PO Last administered on 07/09/16 21:47; Admin Dose 5 MG; Start 07/09/16 at 21:00 KATRINA OWUSU MD Jul 10, 2016 11:20
[2016-07-10] MEDS ORDERED: PROPRANOLOL 20 MG TAB PO SCH (13:00)
--- NOTE | 2016-07-12 09:32 | RADRPT ---
Echocardiogram Report Patient Name: LUIS FERNANDO LOJA Gender: Female Date: 1965 Study Date: 08-Jul-2016 Job Placement Specialist: Jared Shah RDCS Location: [facility] Ref. Physician: LUIS ENRIQUE GRADY Quality: Adequate Procedures: Transthoracic echocardiogram with complete 2D, M-Mode, and doppler examination. Indications: Evaluate Left Ventricular function. 2D/M Mode Doppler Measurement Value Normal Ranges Measurement Value Normal Ranges LVIDd 2D 5.3 3.5 - 5.6 cm AV Peak Hi 1.6 m/sec LVIDs 2D 3.7 2.1 - 4.1 cm AV Peak PG 9.7 mmHg LVPWd 2D 0.9 0.6 - 1.1 cm LVOT Peak Hi 1.1 m/sec IVSd 2D 0.8 0.6 - 1.1 cm LVOT Peak PG 4.8 mmHg AoR Diam 2D 3.5 2.0 - 3.7 cm TR Peak Hi 2.5 m/sec EDV 2D 133.7 cm3 TR Peak PG 25.7 mmHg ESV 2D 52.0 cm3 RVSP 34.0 mmHg LA Dimen 2D 4.1 2.3 - 4.0 cm Findings Left Ventricle: Normal left ventricular cavity size. Normal left ventricular wall thickness. Severe global left ventricular systolic dysfunction. Ejection fraction is visually estimated at 30 %. Right Ventricle: Normal right ventricular size. Mild right ventricular hypokinesis. Left Atrium: There is moderate enlargement of left atrium. Right Atrium: The right atrium is normal in size. Mitral Valve: Mitral valve leaflets appear mildly thickened. Mild mitral annular calcification. Mild mitral valve regurgitation. Aortic Valve: Aortic valve not well visualized. Mild aortic stenosis. Aortic cusps appear moderately calcified. Trace aortic valve regurgitation. Tricuspid Valve: Normal appearance and function of the tricuspid valve with trace physiologic regurgitation. Normal right ventricular systolic pressure. Pulmonic Valve: Normal pulmonic valve appearance. Pericardium: Normal pericardium with no significant pericardial effusion. Aorta: Normal aortic root. IVC: Dilated IVC with respiratory collapse consistent with elevated right atrial pressure. Conclusions 1.Normal left ventricular cavity size. Normal left ventricular wall thickness. Severe global left ventricular systolic dysfunction. Ejection fraction is visually estimated at 30 %. 2.There is moderate enlargement of left atrium. 3.Mitral valve leaflets appear mildly thickened. Mild mitral annular calcification. Mild mitral valve regurgitation. 4.Aortic valve not well visualized. Mild aortic stenosis. Aortic cusps appear moderately calcified. Trace aortic valve regurgitation. 5.Normal appearance and function of the tricuspid valve with trace physiologic regurgitation. Normal right ventricular systolic pressure. 6.Dilated IVC with respiratory collapse consistent with elevated right atrial pressure. Electronically Signed By: Heri Calloway 09-Jul-2016 12:33:29 -0700 Patient Name: LUIS FERNANDO LOJA Study Date: 08-Jul-2016 [id number]
== END 2016-07-10 12:15 | disposition home or self-care (01) | DRG 308 ==
LOC: E/R 05:21 → MS4 08:05
PROVIDERS: ADMIT Internal Medicine; ATTEND Internal Medicine
DX: I48.2 Chronic atrial fibrillation (principal); I50.23 Acute on chronic systolic (congestive) heart failure; J44.1 Chronic obstructive pulmonary disease with (acute) exacerbation; I42.9 Cardiomyopathy, unspecified; I11.0 Hypertensive heart disease with heart failure; E05.90 Thyrotoxicosis, unspecified without thyrotoxic crisis or storm; F15.10 Other stimulant abuse, uncomplicated; E66.9 Obesity, unspecified; E78.5 Hyperlipidemia, unspecified; F17.210 Nicotine dependence, cigarettes, uncomplicated; F11.10 Opioid abuse, uncomplicated; Z91.14 Patient's other noncompliance with medication regimen; Z68.36 Body mass index [BMI] 36.0-36.9, adult; Z79.01 Long term (current) use of anticoagulants
CPT/HCPCS: 36415; 71010; 71275; 76705; 80048; 80053; 80061; 80076; 80307; 82105; 82378; 82550; 82553; 82652; 83036; 83735; 83880; 84100; 84439; 84443; 84484; 85025; 85610; 85651; 85730; 86301; 86304; 86803; 87081; 87340; 93005; 93306; 94640; 94664; 96372; 96374; 96375; 96376; J1650; J1940; J2270; J2405; J2930; J7030; Q9967

== ENCOUNTER 2016-10-14 23:27 | Emergency (ER) | payer MEDICAID, OTHER ==
[~2016-10-14] VITALS: Ht 152.4 cm; Wt 86.5 kg
[~2016-10-14 23:27] MED LIST changes: +ADV25050 INH; -AMIO200T2 PO; -FURO40TA4 PO; -IPRA4AER INHALATION; +LISI20TA11 PO; +METH-493 PO; +METO50TA16 PO; +RIVA20TA PO; +TIOT18CA INH; -VALS160T20 PO
[2016-10-14 23:32] VITALS: Ht 152.4 cm; Wt 86.5 kg
[2016-10-15] MEDS ORDERED: LIDOCAINE/MYLANTA 40 ML BTL PO ONE (01:00)
--- NOTE | 2016-10-15 05:38 | ERD ---
ER Documentation Chief Complaint Date/Time DATE: 10/15/16 TIME: 05:27 Chief Complaint epigastric pain for few days; feels nauseated; denies vomiting HPI 51-year-old female with history of A. fib, hypertension, hyperthyroidism is complaining of "balls on my stomach". Patient stated she feels constant discomfort, and cannot breathe. The discomfort is worse after eating. Patient reports acid reflux, but denies chest pain. Denies fever or chills. Denies vomiting or diarrhea. ROS All systems reviewed and are negative except as per history of present illness. Medications Home Meds Active Scripts Salmeterol Xinaf/Fluticasone* (Advair*) 250-50 Diskus Inhaler, 1 INH INH BID for 30 Days, 1 Refill Prov:EDGAR GARCÍA MD 07/10/16 Metoprolol Succinate* (Toprol XL*) 50 Mg Tab.er.24h, 50 MG PO DAILY for 30 Days , #30 TAB 1 Refill Prov:EDGAR GARCÍA MD 07/10/16 Methimazole* (Methimazole*) 5 Mg Tablet, 20 MG PO WITH BREAKFAST for 30 Days, TAB 4 Refills Prov:EDGAR GARCÍA MD 07/10/16 Tiotropium [place]* (Spiriva*) 18 Mcg Cap.w.dev, 1 INH INH QHS for 30 Days, 1 Refill Prov:EDGAR GARCÍA MD 07/10/16 Rivaroxaban* (Xarelto*) 20 Mg Tablet, 20 MG PO WITH DINNER for 30 Days, TAB 1 Refill Prov:EDGAR GARCÍA MD 07/10/16 Lisinopril* (Lisinopril*) 20 Mg Tablet, 20 MG PO DAILY, #30 TAB 3 Refills Prov:EDGAR GARCÍA MD 07/10/16 Allergies Allergies: Coded Allergies: No Known Allergy (Unverified , 07/08/16) PMhx/Soc History of Surgery: Yes (3 , left foot sx, partial hysterectomy, cardiac ablation) Anesthesia Reaction: No Hx Neurological Disorder: No Hx Respiratory Disorders: Yes Hx Cardiac Disorders: Yes (chf, htn, afib) Hx Psychiatric Problems: No Hx Miscellaneous Medical Probl: No Hx Alcohol Use: Yes (SOCIALLY) Hx Substance Use: No Hx Tobacco Use: Yes (CIG) Smoking Status: Current every day smoker Physical Exam Vitals Vital Signs Date Time Temp Pulse Resp B/P Pulse Ox O2 Delivery O2 Flow Rate FiO2 10/14/16 23:32 98.5 93 20 164/115 97 Physical Exam General: Well-developed, obese, conscious and coherent, in no distress Skin: Warm and dry without rash, good texture and turgor. Small nodules noted on patient's anterior torso, consistent with lipoma. Head: Normocephalic without evidence of trauma Eyes: Sclera and conjunctivae normal; pupils equal, round, and reactive to light; extraocular movements are intact Chest: Normal AP diameter. Good expansion without retractions. Nontender. Lungs are clear to auscultate bilaterally with good tidal volume Heart: Regular rate and rhythm. No murmur, rub, or gallops heard Abdomen: Soft, mild epigastric tenderness without masses, guarding, or rebound. Bowel sounds are active. No hepatosplenomegaly Back: Without spinal or CVA tenderness Pelvis: Nontender to palpation and stable to compression Extremities: Full range of motion. Good strength bilaterally. No clubbing, cyanosis, or edema. Peripheral pulses are intact. Sensation intact Neuro: Alert and oriented 4, GCS 15. Cranial nerves grossly intact. Motor and sensory exams nonfocal. Moves all extremities. Speech clear. Gait normal Results 24 hrs Current Medications Medications (Trade) Dose Ordered Sig/Jemima Route PRN Reason Start Time Stop Time Status Last Admin Dose Admin Miscellaneous Medication (Gi Cocktail (2)) 40 ml ONCE ONCE PO 10/15/16 01:00 10/15/16 01:01 DC 10/15/16 01:14 Procedures/MDM Well-appearing, obese 51-year-old female presents to ED with epigastric discomfort and skin nodules. Skin nodules is consistent with small lipoma. I doubt skin cancer. EKG: Atrial fibrillation with ventricular rate of 129, normal axis. No ST segment elevation or depression. No ectopic beats. No QT prolongation. No other EKG abnormalities. EKG read by Dr. Aranda. GI cocktail given to the patient in the ED. Patient eloped after receiving the medication. Low suspicion for acute coronary syndrome, aortic dissection, pneumonia, pneumothorax, or PE. Departure Diagnosis: Primary Impression: Patient left before treatment completed LIZETH GIBSON NP Oct 15, 2016 05:38
== END 2016-10-15 02:24 | disposition left against medical advice (07) ==
LOC: FTE 23:27 → E/R 10-15 02:24
DX: R10.13 Epigastric pain (principal); I10 Essential (primary) hypertension; I50.9 Heart failure, unspecified; F17.210 Nicotine dependence, cigarettes, uncomplicated; Z79.01 Long term (current) use of anticoagulants
CPT/HCPCS: 93005; Z7502; Z7610

== ENCOUNTER 2017-01-31 00:18 | Emergency (ER) | payer OTHER ==
[~2017-01-31] VITALS: Ht 165.1 cm; Wt 80.0 kg
[~2017-01-31 00:18] MED LIST changes: +METO-319 PO; -METO50TA16 PO
[2017-01-31 00:22] VITALS: Ht 165.1 cm; Wt 80.0 kg
[2017-01-31] MEDS ORDERED: SOD CHLORIDE 0.9% 1,000 ML IV STA (00:23)
[2017-01-31] MEDS ORDERED: ONDANSETRON 4 MG INJ IV STA (00:23)
[2017-01-31] MEDS ORDERED: PANTOPRAZOLE IV 80 MG in SOD CHLORIDE 0.9% 100 ML IVPB STA (00:23)
[2017-01-31] MEDS ORDERED: PANTOPRAZOLE IV 80 MG in SOD CHLORIDE 0.9% 100 ML IV STA (00:23)
[2017-01-31] MEDS ORDERED: OCTREOTIDE 500 MCG in SOD CHLORIDE 0.9% 49 ML IV STA (00:23)
[2017-01-31] MEDS ORDERED: CEFTRIAXONE 1 GM/50 ML (PMX) 50 ML IVPB STA (00:23)
[2017-01-31] MEDS ORDERED: OCTREOTIDE 50 MCG in SOD CHLORIDE 0.9% 25 ML IVPB STA (00:23)
--- NOTE | 2017-01-31 00:50 | RADRPT ---
PROCEDURE: CHEST - 1 VIEW CLINICAL INDICATION: 52-year-old female with shortness of breath and hematemesis. TECHNIQUE: A single frontal AP semi-erect portable view of the chest was performed. The images we re reviewed on a PACS workstation. COMPARISON: Chest x-ray May 10, 2016. FINDINGS: There has been interval removal of the right-sided PICC line. The cardiomediastinal silhouette is mo derately enlarged. There is mild pulmonary vascular congestion. There is diffuse infiltrate througho ut the right upper/mid lung zone with air bronchograms present. There is no evidence for pneumothora x. The osseous structures are intact. IMPRESSION: 1. Cardiomegaly. 2. Mild pulmonary vascular congestion. 3. Diffuse right mid/lower lung zone infiltrate/consolidation with air bronchograms present. .Alfa Reaves MD, MD Date Time Electronically viewed and signed by .Alfa Reaves MD, on 01/31/2017 00:49 .M/
[2017-01-31] MEDS ORDERED: DILTIAZEM 25 MG INJ IV ONE (01:00)
[2017-01-31 01:34] VITALS: BP 132/107; PULSE 121; RESP 22
--- NOTE | 2017-01-31 01:41 | ERD ---
ER Documentation Chief Complaint Chief Complaint vomitting since 9 this evening, blood in vomit HPI This is a 52-year-old female section of vomiting since 9:00 this evening. He said he sees blood in her vomit. 5 episodes of vomiting. No chills no fever. Patient also complains of palpitations. History of atrial fibrillation. ROS All systems reviewed and are negative except as per history of present illness. Medications Home Meds Active Scripts Salmeterol Xinaf/Fluticasone* (Advair*) 250-50 Diskus Inhaler, 1 INH INH BID for 30 Days, 1 Refill Prov:EDGAR GARCÍA MD 07/10/16 Metoprolol Succinate* (Toprol XL*) 50 Mg Tab.er.24h, 50 MG PO DAILY for 30 Days , #30 TAB 1 Refill Prov:EDGAR GARCÍA MD 07/10/16 Methimazole* (Methimazole*) 5 Mg Tablet, 20 MG PO WITH BREAKFAST for 30 Days, TAB 4 Refills Prov:EDGAR GARCÍA MD 07/10/16 Tiotropium [place]* (Spiriva*) 18 Mcg Cap.w.dev, 1 INH INH QHS for 30 Days, 1 Refill Prov:EDGAR GARCÍA MD 07/10/16 Rivaroxaban* (Xarelto*) 20 Mg Tablet, 20 MG PO WITH DINNER for 30 Days, TAB 1 Refill Prov:EDGAR GARCÍA MD 07/10/16 Lisinopril* (Lisinopril*) 20 Mg Tablet, 20 MG PO DAILY, #30 TAB 3 Refills Prov:EDGAR GARCÍA MD 07/10/16 Allergies Allergies: Coded Allergies: No Known Allergy (Unverified , 07/08/16) PMhx/Soc History of Surgery: Yes (3 , left foot sx, partial hysterectomy, cardiac ablation) Anesthesia Reaction: No Hx Neurological Disorder: No Hx Respiratory Disorders: Yes Hx Cardiac Disorders: Yes (chf, htn, afib) Hx Psychiatric Problems: No Hx Miscellaneous Medical Probl: No Hx Alcohol Use: Yes (SOCIALLY) Hx Substance Use: No Hx Tobacco Use: Yes (CIG) Smoking Status: Current some day smoker Physical Exam Vitals Vital Signs Date Time Temp Pulse Resp B/P Pulse Ox O2 Delivery O2 Flow Rate FiO2 01/31/17 01:34 121 22 132/107 91 Room Air 01/31/17 00:57 Simple Mask 6.0 01/31/17 00:55 121 30 124/69 94 Mask 6.0 01/31/17 00:44 102 24 92 Nasal Cannula 2.0 01/31/17 00:35 Nasal Cannula 2 01/31/17 00:22 101.0 125 20 159/109 90 Physical Exam Const: [] Head: Atraumatic Eyes: Normal Conjunctiva ENT: Normal External Ears, Nose and Mouth. Neck: Full range of motion..~ No meningismus. Resp: Clear to auscultation bilaterally Cardio: Regular rate and rhythm, no murmurs Abd: Soft, non tender, non distended. Normal bowel sounds Skin: No petechiae or rashes Back: No midline or flank tenderness Ext: No cyanosis, or edema Neur: Awake and alert Psych: Normal Mood and Affect Results 24 hrs Current Medications Medications (Trade) Dose Ordered Sig/Jemima Route PRN Reason Start Time Stop Time Status Last Admin Dose Admin Sodium Chloride 1,000 ml @ 1,000 mls/hr Q1H STAT IV 01/31/17 00:23 01/31/17 01:22 DC Pantoprazole 80 mg/Sodium Chloride 100 ml @ 400 mls/hr ONCE STAT IVPB 01/31/17 00:23 01/31/17 00:37 DC Pantoprazole 80 mg/Sodium Chloride 100 ml @ 10 mls/hr ONCE STAT IV 01/31/17 00:23 01/31/17 10:22 Octreotide Acetate 50 mcg/ Sodium Chloride 26 ml @ 100 mls/hr Q16M STAT IVPB 01/31/17 00:23 01/31/17 00:38 DC Octreotide Acetate 500 mcg/ Sodium Chloride 50 ml @ 5 mls/hr ONCE STAT IV 01/31/17 00:23 01/31/17 10:22 Ceftriaxone Sodium (Rocephin) 50 ml @ 100 mls/hr ONCE STAT IVPB 01/31/17 00:23 01/31/17 00:52 DC Ondansetron HCl (Zofran Inj) 4 mg ONCE STAT IV 01/31/17 00:23 01/31/17 00:33 DC 01/31/17 00:43 Diltiazem HCl (Cardizem Iv) 20 mg ONCE ONCE IV 01/31/17 01:00 01/31/17 01:01 DC 01/31/17 00:43 Procedures/MDM EKG: Rate/Rhythm: [Normal Sinus Rhythm] QRS, ST, T-waves: [No changes consistent w/ acute ischemia] Impression: [No evidence of ischemia or arrhythmia] Chest X-ray 1V Interpreted by me: Soft Tissue: No acute abnormalities Bones: No acute abnormalities Mediastinum/Cardiac Silhouette/Lungs: [No acute abnormalities] Medical decision-makin-year-old female vomiting blood with A. fib. Treated for A. fib. At this point patient is said to sign AGAINST MEDICAL ADVICE. Patient is alert and oriented 4 with goal oriented speech and good decision-making capacity when she decided to sign against AMA. Patient was informed that she might secondary to current condition. Patient verbalized the risks Critical Care: Time: 45 minutes Treatments/Evaluations: Close monitoring and treatment of unstable vital signs, cardiorespiratory, and neurologic status, while maintaining tight balance of fluid, respiratory, and cardiac interventions. Departure Diagnosis: Primary Impression: Vomiting Vomiting type: unspecified Vomiting Intractability: unspecified Nausea presence: unspecified Qualified Code: R11.10 - Vomiting, intractability of vomiting not specified, presence of nausea not specified, unspecified vomiting type Condition: Serious GLORIALUISBASIA CRISTINA Jan 31, 2017 01:41
[2017-01-31 01:50] LABS: ABNORMAL IP MESSAGE 1; BASOPHIL # 0.1 10^3/ul (0.0-0.1); BASOPHILS % 0.7 % (0.0-2.0); EOSINOPHILS % 0.3 % (0.0-7.0); HEMATOCRIT 45.1 % (37.0-47.0); HEMOGLOBIN 12.8 g/dl (12.0-16.0); LYMPHOCYTES # 0.7 10^3/ul (0.8-2.9); LYMPHOCYTES % 6.1 % (15.0-51.0); MEAN CORPUSCULAR HEMOGLOBIN 22.1 pg (29.0-33.0); MEAN CORPUSCULAR HGB CONC 28.4 g/dl (32.0-37.0); MEAN PLATELET VOLUME 10.4 fl (7.4-10.4); MONOCYTE # 0.6 10^3/ul (0.3-0.9); MONOCYTES % 4.7 % (0.0-11.0); NEUTROPHIL # 10.5 10^3/ul (1.6-7.5); NEUTROPHILS % 87.8 % (39.0-77.0); NUCLEATED RED BLOOD CELLS # 0.1 10^3/ul (0.0-0.0); NUCLEATED RED BLOOD CELLS% 0.8 /100WBC (0.0-0.0); PLATELET COUNT 251 10^3/UL (140-415); RED BLOOD COUNT 5.78 10^6/ul (4.20-5.40); RED CELL DISTRIBUTION WIDTH 19.3 % (11.5-14.5)
[2017-01-31 01:53] LABS: POSITIVE DIFF @See below
[2017-01-31 02:16] LABS: ALBUMIN 3.4 g/dl (3.3-4.9); ALBUMIN/GLOBULIN RATIO 0.94; BILIRUBIN,INDIRECT 0.9 mg/dl (0-1.1); BILIRUBIN,TOTAL 0.9 mg/dl (0.2-1.3); CALCIUM 8.2 mg/dl (8.4-10.2); CREATININE 0.92 mg/dl (0.44-1.00); POTASSIUM 3.2 mmol/L (3.5-5.1)
[2017-01-31 02:27] LABS: TROPONIN-I 0.029 ng/ml (0.00-0.12)
== END 2017-01-31 01:48 | disposition left against medical advice (07) ==
LOC: E/R 00:18
DX: R11.10 Vomiting, unspecified (principal); I10 Essential (primary) hypertension; I50.9 Heart failure, unspecified; F17.210 Nicotine dependence, cigarettes, uncomplicated; Z79.01 Long term (current) use of anticoagulants
CPT/HCPCS: 71010; 80053; 83690; 84484; 85025; 93005; 96374; 96375; C9113; J0696; J2354; J2405; J7030; Z7502; Z7610

== ENCOUNTER 2017-03-27 03:18 | Emergency (ER) | END 2017-03-27 06:00 | disposition left against medical advice (07) ==

== ENCOUNTER 2017-03-30 18:59 | Inpatient (IN) | END 2017-04-04 18:05 | disposition home or self-care (01) | DRG 308 ==

== ENCOUNTER 2017-10-12 23:03 | Inpatient (IN) | END 2017-10-14 19:00 | disposition left against medical advice (07) | DRG 308 ==

== ENCOUNTER 2018-01-07 03:22 | Emergency (ER) | END 2018-01-07 05:43 | disposition home or self-care (01) ==

== ENCOUNTER 2018-02-27 16:47 | Inpatient (IN) | END 2018-03-02 20:44 | disposition home health service (06) | DRG 280 ==

== ENCOUNTER 2018-03-13 23:19 | Emergency (ER) | payer OTHER ==
[~2018-03-13] VITALS: Ht 162.6 cm; Wt 82.9 kg
[~2018-03-13 23:19] MED LIST changes: +ALLO100T PO; +ASC500 PO; +ASPI-817 PO; +BUME1TAB PO; +CARV12.579 PO; +ESCI10TA48 PO; +HYDR-3671 PO; -LISI20TA11 PO; +MAGN400T27 NGT; -METH-493 PO; +METH10TA5 PO; -METO-319 PO; +MUPI22OI2 TOP; +OXYC-279 PO; +PANT40TA4 PO; -RIVA20TA PO; +RIVA20TA5 PO; +VALS160T20 PO
[2018-03-13 23:21] VITALS: Ht 162.6 cm; Wt 82.9 kg
--- NOTE | 2018-03-14 00:05 | ERD ---
ER Documentation Chief Complaint Chief Complaint right foot pain x 2 days, denies trauma HPI This is a 53-year-old female who presents here in the emergency department with complaints of right second toe pain for about 2 days. Stated that this is similar to her gout flare. LMP: Stated that she has history of partial hysterectomy. Denies headache, head injury, loss of consciousness, dizziness, neck pain, neck stiffness, throat pain, difficulty swallowing, difficulty breathing lying flat, shoulder pain, chest pain, back pain, abdominal pain, nausea, vomiting, co nstipation, diarrhea, urinary symptoms, or possibility being , loss of bowel and bladder control, trauma, injury, falls, difficulty walking due to pain, numbness or tingling sensation, calf pain, recent travel, recent major surgery in the last 3 weeks, calf pain, recent long travel, recent exposure to any illness, recent antibiotic use in the last 3 months, fever, chills, seizures. Past medical history: Atrial fibrillation. Gout. Hypertension. Hypothyroidism. Surgical history: x3. Social: Denies smoking, use of alcoholic beverages, use of illegal drugs. ROS All systems reviewed and are negative except as per history of present illness. Medications Home Meds Active Scripts Ibuprofen* (Motrin*) 800 Mg Tab, 800 MG PO Q6H PRN for PAIN AND OR ELEVATED TEMP, #30 TAB Prov:SIDDHARTH KNAPP 03/14/18 Hydrocodone/Acetaminophen ([place] 10-325 Tablet) 1 Each Tablet, 1 TAB PO Q6H PRN for SEVERE PAIN LEVEL 7-10, #15 TAB Prov:SIDDHARTH KNPAP 03/14/18 Famotidine* (Pepcid*) 20 Mg Tablet, 20 MG PO DAILY for 30 Days, TAB Prov:SIDDHARTH KNAPP 03/14/18 Mupirocin* (Bactroban*) 2% -22 Gram Oint...g., 1 APPLIC TOP BID for 4 Days, #8 PACKET Prov:ASA STEWART MD 03/02/18 Magnesium Oxide* (Mag-Oxide*) 400 Mg Tablet, 400 MG NGT DAILY, #30 TAB Prov:ASA STEWART MD 03/02/18 Bumetanide* (Bumetanide*) 1 Mg Tablet, 1 MG PO DAILY for 30 Days, #30 TAB Prov:ASA STEWART MD 03/02/18 Oxycodone HCl/Acetaminophen (Percocet 5-325 mg Tablet) 1 Each Tablet, 1 EACH PO QHS, #7 TAB Prov:HALLIE GUZMAN PA-C 01/07/18 Methimazole* (Methimazole*) 10 Mg Tablet, 10 MG PO DAILY for 30 Days, #30 TAB Prov:JENN KYLE MD 10/13/17 Hydralazine Hcl* (Hydralazine Hcl*) 25 Mg Tab, 25 MG PO TID for 30 Days, #90 TAB Prov:SUZI WATSON 04/04/17 Carvedilol* (Carvedilol*) 12.5 Mg Tablet, 12.5 MG PO BID for 30 Days, #60 TAB Prov:SUZI WATSON 04/04/17 Valsartan* (Diovan*) 160 Mg Tablet, 160 MG PO BID for 30 Days, #60 TAB Prov:SUZI WATSON 04/04/17 Salmeterol Xinaf/Fluticasone* (Advair*) 250-50 Diskus Inhaler, 1 INH INH BID for 30 Days, #1 INHALER 1 Refill Prov:SUZI WATSON 04/04/17 Tiotropium [place]* (Spiriva*) 18 Mcg Cap.w.dev, 1 INH INH QHS for 30 Days, #1 INHALER 1 Refill Prov:SUZI WATSON 04/04/17 Rivaroxaban* (Xarelto*) 20 Mg Tablet, 20 MG PO WITH DINNER for 30 Days, TAB 1 Refill Prov:EDGAR GARCÍA MD 07/10/16 Reported Medications Escitalopram Oxalate* (Escitalopram Oxalate*) 10 Mg Tablet, 10 MG PO DAILY, #30 TAB 10/13/17 Allopurinol* (Allopurinol*) 100 Mg Tablet, 100 MG PO DAILY, TAB 10/13/17 Pantoprazole* (Pantoprazole*) 40 Mg Tablet.dr, 40 MG PO AC BREAKFAST, TAB 03/30/17 Aspirin* (Aspirin* EC) 81 Mg Tablet.dr, 81 MG PO DAILY, TAB 03/30/17 Ascorbic Acid (Vitamin C) 500 Mg Tab, 500 MG PO DAILY, TAB 03/30/17 Allergies Allergies: Coded Allergies: No Known Allergy (Unverified , 4/20/17) PMhx/Soc Anesthesia Reaction: No Hx Neurological Disorder: No Hx Respiratory Disorders: No Hx Cardiac Disorders: Yes (HTN, A Fib, CHF) Hx Psychiatric Problems: Yes (anxiety) Hx Miscellaneous Medical Probl: Yes (HTN, Afib, CHF, chronic abdominal pain, hysterectomy, anxiety, obesity) Hx Alcohol Use: Yes (once a year, 2 drinks) Hx Substance Use: No Hx Tobacco Use: Yes (1-2 cigarrettes per day) Smoking Status: Current every day smoker Physical Exam Vitals Physical Exam Const: No acute distress Head: Atraumatic Eyes: Normal Conjunctiva ENT: Normal External Ears, Nose and Mouth. Neck: Full range of motion. No meningismus. Resp: Clear to auscultation bilaterally Cardio: Regular rate and rhythm, no murmurs Abd: Soft, non tender, non distended. Normal bowel sounds Skin: No petechiae or rashes Back: No midline or flank tenderness Ext: No cyanosis, or edema. Right second toe: Swelling and tenderness to the right second toe Has good and full range of motion. No neurovascular deficits. Skin is not warm to touch. Skin is no redness. Ambulatory with steady gait. Neur: Awake and alert. No neurological deficit. Psych: Normal Mood and Affect Results 24 hrs Current Medications Medications Dose Sig/Jemima Start Time Status Last (Trade) Ordered Route PRN Stop Time Admin Dose Reason Admin Colchicine 1.2 mg ONCE ONCE 03/14/18 DC 03/14/18 (Colchicine) PO 00:00 00:30 03/14/18 00:01 Colchicine 0.6 mg ONCE ONCE 03/14/18 DC 03/14/18 (Colchicine) PO 02:00 02:29 03/14/18 02:01 1 tab ONCE ONCE 03/14/18 DC 03/14/18 Acetaminophen PO 02:00 02:30 / 03/14/18 Hydrocodone 02:01 Bitart ([place] (5/325)) Procedures/MDM Diagnostic tests: X-ray of the right foot: No evidence of fracture. Small calcaneal spur. Treatment: Colchicine p.o. [place] p.o. Re-evaluation: Denies pain. No neurovascular deficits. Differential diagnosis I have low suspicion for sepsis, septic joint, cellulitis, fractures. Final diagnosis: Gout. Foot pain. Prescription: [place] for severe pain. Motrin. Pepcid p.o. Follow-up with PCP in the next 24-48 hours. Come back here in the emergency department for any new symptoms or any worsening symptoms. All questions and concerns were answered. Patient and family members verbalized understanding and agreed with plan of care. Hemodynamically stable on discharge. Departure Diagnosis: Primary Impression: Foot pain Additional Impression: Gout Condition: Stable Additional Instructions: Follow-up with PCP in the next 24-48 hours. Come back here in the emergency department for any new symptoms or any worsening symptoms. SIDDHARTH KNAPP Mar 14, 2018 00:05
[2018-03-14] MEDS ORDERED: FAMO-96 PO (01:51)
[2018-03-14] MEDS ORDERED: IBUP800T48 PO (01:52)
[2018-03-14] MEDS ORDERED: HYDR-3980 PO (01:52)
[2018-03-14] MEDS ORDERED: HYDROCODONE/APAP (5/325) TAB PO ONE (02:00)
[2018-03-14] MEDS ORDERED: COLCHICINE 0.6 MG TAB PO ONE ×2 (02:00)
[2018-03-14 02:40] VITALS: BP 158/114; PULSE 85; RESP 20
== END 2018-03-14 02:33 | disposition home or self-care (01) ==
LOC: FTE 23:19
DX: M10.9 Gout, unspecified (principal); I11.0 Hypertensive heart disease with heart failure; I50.9 Heart failure, unspecified; E66.9 Obesity, unspecified; F17.210 Nicotine dependence, cigarettes, uncomplicated; E03.9 Hypothyroidism, unspecified; Z68.31 Body mass index [BMI] 31.0-31.9, adult; Z79.82 Long term (current) use of aspirin
CPT/HCPCS: 73630; Z7502; Z7610

== ENCOUNTER 2018-07-13 05:17 | Emergency (ER) | payer OTHER ==
[~2018-07-13] VITALS: Ht 162.6 cm; Wt 70.4 kg
[~2018-07-13 05:17] MED LIST changes: -ADV25050 INH; +ADV25050 INHALATION; +FER325 PO; +GABA100C14 PO; -HYDR-3671 PO; +HYDR-4011 PO; -MAGN400T27 NGT; -MUPI22OI2 TOP; -OXYC-279 PO; +PANT40TA3 PO; -PANT40TA4 PO; +POTA20TA15 PO; +SPIR25TA PO; -TIOT18CA INH
[2018-07-13 05:20] VITALS: Ht 162.6 cm; Wt 70.4 kg
[2018-07-13] MEDS ORDERED: DEXAMETHASONE 10 MG/ML 1 ML INJ IM ONE (07:00)
[2018-07-13] MEDS ORDERED: HYDROCODONE/APAP (5/325) TAB PO ONE (07:00)
[2018-07-13] MEDS ORDERED: MED4DP PO (08:04)
[2018-07-13] MEDS ORDERED: HYDR-4011 PO (08:04)
--- NOTE | 2018-07-13 08:06 | ERD ---
ER Documentation Chief Complaint Chief Complaint left ankle pain x 2 days, denies trauma, hx of gout HPI 53-year-old female past medical history of DC, atrial fibrillation, hypertension presents for left ankle and foot pain x2 days. She does have history of gout. She feels like the current pain is what she usually experiences during all flares. She states that she has 10 out of 10 pain, pain worsens with standing. Pain is nonradiating, described as sharp. Denies any fevers or chills. Denies recent infection. She is currently taking allopurinol. No treatments tried at home, no other modifying factors noted. Patient does have a history of "stomach problems "and states that she is scheduled to have an endoscopy. Therefore she has been avoiding NSAIDs. ROS All systems reviewed and are negative except as per history of present illness. Medications Home Meds Active Scripts Hydrocodone/Acetaminophen ([place] 5-325 Tablet) 1 Each Tablet, 1 TAB PO Q6H PRN for PAIN, #10 TAB Prov:DINA BAGLEY DO 07/13/18 Methylprednisolone* (Medrol* DOSE PACK) 4 Mg/Dose-Pack Tab.ds.pk, 4 MG PO . DIRECTED, #1 PACKET Prov:DINA BAGLEY DO 07/13/18 Reported Medications Spironolactone* (Aldactone*) 25 Mg Tablet, 25 MG PO DAILY, #30 TAB 04/30/18 Valsartan* (Diovan*) 160 Mg Tablet, 160 MG PO BID, TAB 04/30/18 Hydrocodone/Acetaminophen ([place] 5-325 Tablet) 1 Each Tablet, 1 EACH PO Q6 PRN for PAIN, TAB 04/30/18 Pantoprazole* (Protonix*) 40 Mg Tablet.dr, 40 MG PO DAILY, TAB 04/30/18 Gabapentin* (Gabapentin*) 100 Mg Capsule, 100 MG PO BID, #90 CAP 04/30/18 Ferrous Sulfate* (Ferrous Sulfate*) 325 Mg Tabec, 325 MG PO DAILY, TAB 04/30/18 Potassium Chloride* (K-Dur*) 20 Meq Tab.prt.sr, 20 MEQ PO DAILY, TAB.SA 04/30/18 Salmeterol Xinaf/Fluticasone* (Advair*) 250-50 Diskus Inhaler, 1 INH INHALATION BID, #1 INHALER 04/30/18 Rivaroxaban* (Xarelto*) 20 Mg Tablet, 20 MG PO WITH DINNER, TAB 04/30/18 Methimazole* (Methimazole*) 10 Mg Tablet, 10 MG PO DAILY, TAB 04/30/18 Carvedilol* (Carvedilol*) 12.5 Mg Tablet, 12.5 MG PO BID, #60 TAB 04/30/18 Bumetanide* (Bumetanide*) 1 Mg Tablet, 1 MG PO DAILY, TAB 04/30/18 Escitalopram Oxalate* (Escitalopram Oxalate*) 10 Mg Tablet, 10 MG PO DAILY, #30 TAB 10/13/17 Allopurinol* (Allopurinol*) 100 Mg Tablet, 100 MG PO DAILY, TAB 10/13/17 Aspirin* (Aspirin* EC) 81 Mg Tablet.dr, 81 MG PO DAILY, TAB 03/30/17 Ascorbic Acid (Vitamin C) 500 Mg Tab, 500 MG PO DAILY, TAB 03/30/17 Allergies Allergies: Coded Allergies: No Known Allergy (Unverified , 07/13/18) PMhx/Soc History of Surgery: Yes (2007 Lt bunionectomy/hammer toe, c section '81, '83 '87, 2008 hysterectomy) Anesthesia Reaction: No Hx Neurological Disorder: No Hx Respiratory Disorders: No Hx Cardiac Disorders: Yes (HTN, A Fib, CHF, DC) Hx Psychiatric Problems: Yes (anxiety) Hx Miscellaneous Medical Probl: Yes (GOUT, H. PYLORI, HYPOTHYROID ) Hx Alcohol Use: Yes (social) Hx Substance Use: Yes (CRYSTAL METH but not anymore) Hx Tobacco Use: Yes (1-2 cigarrettes per day) Smoking Status: Current every day smoker FmHx Family History: coronary disease Physical Exam Vitals Vital Signs Date Temp Pulse Resp B/P (MAP) Pulse Ox O2 O2 Flow FiO2 Time Delivery Rate 07/13/18 98.2 99 20 145/99 100 Room Air 08:14 (114) 07/13/18 97.8 114 20 149/106 100 05:20 (120) Physical Exam Const: No acute distress Resp: Clear to auscultation bilaterally Cardio: Regular rate and rhythm, no murmurs, left dorsalis pedis pulse intact Abd: Soft, non tender, non distended. Normal bowel sounds Skin: No petechiae or rashes Back: No midline or flank tenderness Ext: Left foot swelling noted mostly over the toe joints diffusely, there is decreased range of motion. Neur: Awake and alert, sensation over the left foot intact Psych: Normal Mood and Affect Results 24 hrs Current Medications Medications Dose Sig/Jemima Start Time Status Last (Trade) Ordered Route PRN Stop Time Admin Dose Reason Admin 6 mg ONCE ONCE 07/13/18 DC 07/13/18 Dexamethasone IM 07:00 07:07 (Decadron) 07/13/18 07:01 1 tab ONCE ONCE 07/13/18 DC 07/13/18 Acetaminophen PO 07:00 07:07 / 07/13/18 07:01 Hydrocodone Bitart ([place] (5/325)) Procedures/MDM Medical Decision Making: Differential diagnosis includes but not limited to fracture, dislocation, muscle strain, ligamentous sprain, gout attack, cellulitis, dermatitis Patient appeared well on physical exam. There was tenderness over the left foot Patient was neurovascularly intact ED course: Patient was given [place] and Decadron. Symptoms improved with treatment. Prescription(s): Patient given prescription for supportive medication including [place] short course low-dose. NSAIDs avoided due to "stomach problems" which is scheduled for endoscopy. Follow up: Patient advised to follow up with ortho surgery. Information for follow up provided. Patient advised to follow up with PCP in 1-2 days. Patient advised to return to ED for new or worsening symptoms. Patient stable on discharge from the ED. Disclaimer: Inadvertent spelling and grammatical errors are likely due to EHR/dictation software use and do not reflect on the overall quality of patient care. Also, please note that the electronic time recorded on this note does not necessarily reflect the actual time of the patient encounter. Departure Diagnosis: Primary Impression: Gout flare Gout site: foot Gout etiology: unspecified cause Laterality: left Qualified Codes: M10.9 - Gout, unspecified Condition: Fair Patient Instructions: Treating Gout Attacks Referrals: COMMUNITY CLINICS YOU HAVE RECEIVED A MEDICAL SCREENING EXAM AND THE RESULTS INDICATE THAT YOU DO NOT HAVE A CONDITION THAT REQUIRES URGENT TREATMENT IN THE EMERGENCY DEPARTMENT. FURTHER EVALUATION AND TREATMENT OF YOUR CONDITION CAN WAIT UNTIL YOU ARE SEEN IN YOUR DOCTORS OFFICE WITHIN THE NEXT 1-2 DAYS. IT IS YOUR RESPONSIBILITY TO MAKE AN APPOINTMENT FOR FOLOW-UP CARE. IF YOU HAVE A PRIMARY DOCTOR --you should call your primary doctor and schedule an appointment IF YOU DO NOT HAVE A PRIMARY DOCTOR YOU CAN CALL OUR PHYSICIAN REFERRAL HOTLINE AT IF YOU CAN NOT AFFORD TO SEE A PHYSICIAN YOU CAN CHOSE FROM THE FOLLOWING [facility] [address] [facility] [address] [facility] [facility] [address] [facility] [address] [facility] [address] [facility]. [facility]. [address] Additional Instructions: Call your primary care doctor TOMORROW for an appointment during the next 1-2 days.See the doctor sooner or return here if your condition worsens before your appointment time. DINA BAGLEY DO Jul 13, 2018 08:06
[2018-07-13 08:14] VITALS: BP 145/99; PULSE 99; RESP 20
== END 2018-07-13 11:23 | disposition home or self-care (01) ==
LOC: FTE 05:17
DX: M10.9 Gout, unspecified (principal); I11.0 Hypertensive heart disease with heart failure; I50.9 Heart failure, unspecified; I25.2 Old myocardial infarction; E03.9 Hypothyroidism, unspecified; F17.210 Nicotine dependence, cigarettes, uncomplicated; Z79.82 Long term (current) use of aspirin
CPT/HCPCS: 96372; J1100; Z7502; Z7610

== ENCOUNTER 2019-01-21 16:31 | Observation (INO) | payer OTHER ==
[~2019-01-21] VITALS: Ht 162.6 cm; Wt 78.0 kg
[~2019-01-21 16:31] MED LIST changes: -BUME1TAB PO; +BUME1TAB3 PO; +MAGN400T28 PO; +MED4DP PO
[2019-01-21] MEDS ORDERED: ONDANSETRON 4 MG INJ IV STA (19:19)
[2019-01-21] MEDS ORDERED: morphine 4 MG/ML VIAL IV STA (19:19)
[2019-01-21] MEDS ORDERED: LABETALOL HCL 20MG INJ IV ONE (20:30)
[2019-01-21] MEDS ORDERED: ONDANSETRON 4 MG INJ IV PRN (22:00)
[2019-01-21] MEDS ORDERED: ACETAMINOPHEN 325 MG TAB PO PRN (22:00)
[2019-01-21] MEDS ORDERED: ZOLPIDEM 5 MG TAB PO PRN (22:30)
[2019-01-21] MEDS ORDERED: morphine 4 MG/ML VIAL IV PRN (22:30)
[2019-01-22 00:55] VITALS: Ht 162.6 cm; Wt 78.0 kg
[2019-01-22 03:52] VITALS: BP 168/119; PULSE 84; RESP 19
[2019-01-22] MEDS ORDERED: PANTOPRAZOLE (EC) 40 MG TAB PO SCH (06:00)
[2019-01-22 08:07] VITALS: BP 155/93; PULSE 84; RESP 20
[2019-01-22 08:12] VITALS: BP 131/91
[2019-01-22] MEDS: ESCITALOPRAM 10 MG TAB PO SCH ×2 (08:14→08:19)
[2019-01-22] MEDS ORDERED: METHIMAZOLE 5 MG TAB PO SCH (09:00)
[2019-01-22] MEDS ORDERED: GABAPENTIN 100 MG CAP PO SCH (09:00)
[2019-01-22] MEDS ORDERED: LOSARTAN 50 MG TAB PO SCH (09:00)
[2019-01-22] MEDS ORDERED: BUMETANIDE 1 MG TAB PO SCH (09:00)
[2019-01-22] MEDS ORDERED: ALLOPURINOL 100 MG TAB PO SCH (09:00)
[2019-01-22] MEDS ORDERED: SPIRONOLACTONE 25 MG TAB PO SCH (09:00)
== END 2019-01-22 10:55 | disposition home or self-care (01) ==
LOC: E/R 16:31 → INTOOBSV 21:36 → TEL 21:36
PROVIDERS: ADMIT Internal Medicine; ATTEND Internal Medicine
DX: M79.81 Nontraumatic hematoma of soft tissue (principal); I10 Essential (primary) hypertension; I42.9 Cardiomyopathy, unspecified; M10.9 Gout, unspecified; I48.20 Chronic atrial fibrillation, unspecified; Z79.01 Long term (current) use of anticoagulants; F15.10 Other stimulant abuse, uncomplicated
CPT/HCPCS: 36415; 71045; 74176; 80053; 83690; 85025; 85610; 85730; 86850; 86870; 86900; 86901; 86902; 93005; 96374; 96375; J2270; J2405; Z7500; Z7502; Z7610; 99217; G0378